=== PATIENT | female | born 1955 | race Caucasian/White ===

== ENCOUNTER 2021-03-04 07:39 | Outpatient (REF) | payer MEDICARE, SELFPAY ==
[2021-03-04 08:58] LABS: Cholesterol 194 mg/dL; HDL Cholesterol 111 mg/dL; LDL Cholesterol Calculated 66 mg/dl; Triglycerides 88 mg/dL
== END 2021-03-04 07:40 | disposition home or self-care (01) ==
LOC: HO.LAB 07:39
PROVIDERS: PCP Internal Medicine; Visit Provider Internal Medicine
DX: E11.9 Type 2 diabetes mellitus without complications (principal)
CPT/HCPCS: 36415; 80061

== ENCOUNTER 2022-03-25 10:26 | Outpatient (REF) | payer MEDICARE, SELFPAY ==
[2022-03-25 10:42] LABS: MANUAL DIFF FLAG NO
[2022-03-25 11:00] LABS: Basophils Percent Auto 0.5 % (0-2); Eosinophils Absolute Auto 0.1 X10*3/uL (0.0-0.4); Eosinophils Percent Auto 1.3 % (0-4); Hematocrit 39.9 % (37.0-47.0); Hemoglobin 13.3 g/dl (12.0-16.0); Imm Gran Abs Auto 0.02 X10*3/uL (0.00-0.03); Imm Gran Pct Auto 0.4 % (0.0-0.4); Lymphocytes Absolute Auto 1.7 X10*3/uL (1.2-4.9); Mean Corpuscular HGB Conc 33.3 g/dl (31.0-35.0); Mean Corpuscular Hemoglobin 31.7 pg (27.0-33.0); Mean Corpuscular Volume 95.2 fL (80.0-98.0); Mean Platelet Volume 10.3 fL (9.4-12.3); Monocytes Absolute Auto 0.6 X10*3/uL (0.1-1.2); Monocytes Percent Auto 10.4 % (2-11); Neutrophils Absolute Auto 3.1 x10*3/uL (2.0-8.3); Neutrophils Percent Auto 56.4 % (45-73); Platelet Count 164 X10*3/uL (160-400); Red Blood Count 4.19 X10*6/uL (4.20-5.50); Red Cell Distribution Width 12.7 % (11.0-16.0); White Blood Count 5.5 X10*3/uL (4.8-10.8)
[2022-03-25 11:33] LABS: Alanine Aminotransferase 17 U/L (0-31); Albumin Level 4.4 g/dL (3.5-5.0); Alkaline Phosphatase 47 U/L (39-117); Anion Gap 14 (12-20); Aspartate Amino Transferase 22 U/L (5-31); Blood Urea Nitrogen 10 mg/dL (9-16); Calcium 9.1 mg/dL (8.4-10.2); Carbon Dioxide 26 mmol/L (22-29); Chloride 105 mmol/L (96-108); Cholesterol 198 mg/dL; Estimated Glomerular Filt Rate > 60; Glucose Fasting 94 mg/dL (60-99); HDL Cholesterol 103 mg/dL; LDL Cholesterol Calculated 84 mg/dl; Potassium 4.6 mmol/L (3.3-5.1); Sodium 140 mmol/L (135-145); Total Protein 6.7 g/dL (6.5-8.0); Triglycerides 57 mg/dL
[2022-03-25 11:58] LABS: Thyroid Stimulating Hormone 1.84 uIU/mL (0.32-4.0)
== END 2022-03-25 10:27 | disposition home or self-care (01) ==
LOC: HO.LAB 10:26
PROVIDERS: PCP Internal Medicine; Visit Provider Internal Medicine
DX: Z00.00 Encounter for general adult medical examination without abnormal findings (principal); E11.9 Type 2 diabetes mellitus without complications
CPT/HCPCS: 36415; 80053; 80061; 84443; 85025

== ENCOUNTER 2022-12-24 08:24 | Outpatient (REF) | payer MEDICARE, SELFPAY ==
[2022-12-24 08:41] LABS: MANUAL DIFF FLAG NO
[2022-12-24 08:46] LABS: Basophils Percent Auto 0.3 % (0-2); Eosinophils Absolute Auto 0.1 X10*3/uL (0.0-0.4); Eosinophils Percent Auto 1.3 % (0-4); Hematocrit 39.5 % (37.0-47.0); Hemoglobin 13.2 g/dl (12.0-16.0); Imm Gran Abs Auto 0.02 X10*3/uL (0.00-0.03); Imm Gran Pct Auto 0.3 % (0.0-0.4); Lymphocytes Absolute Auto 1.8 X10*3/uL (1.2-4.9); Lymphocytes Percent Auto 28.8 % (20-40); Mean Corpuscular HGB Conc 33.4 g/dl (31.0-35.0); Mean Corpuscular Hemoglobin 32.4 pg (27.0-33.0); Mean Corpuscular Volume 97.1 fL (80.0-98.0); Mean Platelet Volume 10.2 fL (9.4-12.3); Monocytes Absolute Auto 0.5 X10*3/uL (0.1-1.2); Monocytes Percent Auto 8.7 % (2-11); Neutrophils Absolute Auto 3.8 x10*3/uL (2.0-8.3); Neutrophils Percent Auto 60.6 % (45-73); Platelet Count 161 X10*3/uL (160-400); Red Blood Count 4.07 X10*6/uL (4.20-5.50); Red Cell Distribution Width 12.9 % (11.0-16.0); White Blood Count 6.2 X10*3/uL (4.8-10.8)
[2022-12-24 09:41] LABS: Chloride 109 mmol/L (96-108)
[2022-12-24 09:43] LABS: Alanine Aminotransferase 20 U/L (0-31); Albumin Level 4.3 g/dL (3.5-5.0); Alkaline Phosphatase 43 U/L (39-117); Anion Gap 10 (12-20); Aspartate Amino Transferase 26 U/L (5-31); Bilirubin Total 0.7 mg/dL (0.0-1.0); Blood Urea Nitrogen 12 mg/dL (9-16); Calcium 9.4 mg/dL (8.4-10.2); Carbon Dioxide 27 mmol/L (22-29); Cholesterol 230 mg/dL; Estimated Glomerular Filt Rate > 60; Glucose Fasting 80 mg/dL (60-99); HDL Cholesterol 94 mg/dL; LDL Cholesterol Calculated 118 mg/dl; Potassium 4.4 mmol/L (3.3-5.1); Sodium 142 mmol/L (135-145); Total Protein 6.7 g/dL (6.5-8.0); Triglycerides 90 mg/dL
== END 2022-12-24 08:25 | disposition home or self-care (01) ==
LOC: HO.LAB 08:24
PROVIDERS: PCP Internal Medicine; Visit Provider Internal Medicine
DX: Z00.00 Encounter for general adult medical examination without abnormal findings (principal); E11.9 Type 2 diabetes mellitus without complications; Z13.0 Encounter for screening for diseases of the blood and blood-forming organs and certain disorders involving the immune mechanism
CPT/HCPCS: 36415; 80053; 80061; 85025

== ENCOUNTER 2023-05-31 14:14 | Outpatient (AMB) | payer MEDICARE, SELFPAY ==
[2023-05-31 14:16] VITALS: BP 132/64; PULSE 60; O2SAT 98; BMI 23.0
--- NOTE | 2023-05-31 14:16 | MHC.PC.OV ---
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: Not Required per policy Accompanied by: Self / Same As Patient Allergies bupropion [From WELLBUTRIN] Allergy (Intermediate, Verified 05/31/23 14:17) RASH Penicillins [PENICILLINS] Allergy (Intermediate, Verified 05/31/23 14:17) RASH lisinopril Allergy (Unknown, Verified 05/31/23 14:17) cough Medication List - Last Reconciled 06/01/23 by Champ Grady MD atorvastatin 10 mg PO DAILY bisoprolol fumarate 5 mg PO DAILY calcium carbonate-vitamin D3 600 mg-5 mcg (200 unit) (Calcium 600 + D(3)) 1 tab PO DAILY spironolactone mg PO turmeric 400 mg PO DAILY Tobacco use date assessed: 02/01/23 Fall risk assessment: No Falls in past year Last assessed Fall Risk: 05/31/23 Dental Screening Dental Screen Date: 05/31/23 Did you have a dental visit in the last 12 months?: Yes Did you have a dental problem in the last 6 months where you did not have access to dental care?: No Was dental information given to patient?: Patient has dentist HPI 4 month f/u HPI Details hyperlipidemia on Rx; doing well; compliant [facility] Medical History Hyperlipidemia Surgical History History of surgery Family History Father Automobile accident Family/Other Hypertension Brother No problems noted. Sister No problems noted. Social History Housing: House Alcohol intake: current Alcohol intake frequency: 0-2 drinks per day Patient Tobacco Use Status: Former Tobacco user Tobacco use type: Cigarette e-Cigarette/Vaping Use: Never Used Second Hand Smoke Exposure: No service: No Current occupational status: retired Cognitive needs: No Hearing needs: No Vision needs: Yes Questionnaire PHQ-9 Over the last 2 weeks, how often have you been bothered by any of the following problems? 1. Little interest or pleasure in doing things: not at all 2. Feeling down, depressed, or hopeless: not at all 3. Trouble falling or staying asleep, or sleeping too much: not at all 4. Feeling tired or having little energy: not at all 5. Poor appetite or overeating: not at all 6. Feeling bad about yourself - or that you are a failure or have let yourself or your family down: not at all 7. Trouble concentrating on things, such as reading the newspaper or watching television: not at all 8. Moving or speaking so slowly that other people could have noticed. Or the opposite - being so fidgety or restless that you have been moving around a lot more than usual: not at all 9. Thoughts that you would be better off or of hurting yourself in some way: not at all Total score: 0 Depression Screening Interpretation: Negative 90487 - PHQ-9 Billing: Yes Source: Developed by Drs. Kit Pope, Loly Zepeda, Noé Leyva and colleagues, with an educational mitchell from [employer]. Thrive Questionnaire Date Thrive assessed: 02/01/23 AUDIT C Alcohol Use Questionnaire (AUDIT-C) 1. How often do you have a drink containing alcohol?: 4 or more times a week 2. How many drinks containing alcohol do you have on a typical day when you are drinking?: 1 or 2 3. How often do you have six or more drinks on one occasion?: Never Total Score: 4 Score Reviewed/Action Taken: Yes VIRGIE-7 AMB Questionnaire VIRGIE-7 Date VIRGIE - 7 assessed: 02/01/23 Source: Developed by Drs. Kit Pope, Loly Zepeda, Noé Leyva and colleagues, with an educational mitchell from [employer]. Review of Systems Const Denies chills, Denies headache(s) and Denies weight loss ENT Denies headache(s) Card Denies chest pain, Denies syncope, Denies irregular heart rhythm and Denies dyspnea Resp Denies chest congestion, Denies cough and Denies dyspnea GI Denies abdominal pain, Denies change in stool character, Denies nausea and Denies vomiting Musc Denies deformity and Denies joint swelling Neuro Denies syncope and Denies headache(s) Physical exam (Primary Care) Vital Signs: Last Vital Signs Pulse 60 05/31/23 14:16 BP 132/64 05/31/23 14:16 Pulse Ox 98 05/31/23 14:16 Oxygen Delivery Method Room Air 05/31/23 14:16 BMI result Body Mass Index 23.0 Tobacco/Smoking Status: Tobacco use Status Tobacco use date assessed 02/01/23 05/31/23 14:21 Patient Tobacco Use Status Former Tobacco user 05/31/23 14:21 Tobacco use type Cigarette 05/31/23 14:21 e-Cigarette/Vaping Use Never Used 05/31/23 14:21 PHQ-9: PHQ-9 Score PHQ-9: Total score 0 05/31/23 14:21 Depression Screening Interpretation: Negative Thrive Assessment: Date of Thrive Assessment Date Thrive assessed 02/01/23 05/31/23 14:21 Const General: cooperative, comfortable, no acute distress and alert Neck Neck: Yes no lymphadenopathy Thyroid: Thyroid normal Resp Effort & Inspection: normal respiratory effort Auscultation: clear to auscultation bilaterally Percussion: percussion normal Cardio Jugular venous distension: no JVD Palpation: normal PMI Rate: regular rate Rhythm: regular rhythm Heart sounds: S1 normal heart sound present and S2 normal heart sound present GI Inspection: Yes normal to inspection Palpation (GI): No hepatosplenomegaly present Skin General skin exam: no rashes or lesions noted Extrem General: Yes no clubbing, cyanosis or edema Assessment and Plan Assessment & Plan (1) Hyperlipidemia: Code(s): E78.5 - Hyperlipidemia, unspecified Plan: stable; same rx Orders: Orders Lipid Panel Today E78.5 - Hyperlipidemia, unspecified Coding Level of Care Code Est Pt Level 3 (86918) Diagnoses Hyperlipidemia E78.5
== END 2023-05-31 14:29 | disposition home or self-care (01) ==
PROVIDERS: PCP Internal Medicine; Visit Provider Internal Medicine
DX: E78.5 Hyperlipidemia, unspecified (principal)
CPT/HCPCS: 99213

== ENCOUNTER 2023-07-11 06:21 | Day surgery (SDC) | payer MEDICARE, SELFPAY ==
[2023-07-07 11:51] VITALS: BMI 23.0
[2023-07-11 06:51] VITALS: BMI 23.0
[2023-07-11 07:14] VITALS: BP 146/78; PULSE 60; RESP 16; TEMP 36.3; O2SAT 97
[2023-07-11] MEDS: Lactated Ringers 1,000 ML 50 ML IVCONT (07:15)
--- NOTE | 2023-07-11 07:25 | HO.ANESPROP2 ---
HPI - Anesthesia Eval Consult details Narrative: 67 yo F for colonoscopy. Hx of Takutsubo cardiomyopathy. Cardiology notes reviewed. [facility] Active Problems Active Problems: All Active Problems (Updated 07/07/23 @ 11:54 by Ritika Frye RN) Physical exam (Acute) Hyperlipidemia (Acute) Past Medical History Medical History Paroxysmal atrial fibrillation Takotsubo cardiomyopathy Hyperlipidemia Family History Family History Father Automobile accident Family/Other Hypertension Brother No problems noted. Sister No problems noted. Surgical History Surgical History Hx of cardiac catheterization Hx of cervical discectomy H/O colonoscopy History of Problems with Anesthesia: No Social History Social History Housing: House Alcohol intake: current Alcohol intake frequency: 0-2 drinks per day Patient Tobacco Use Status: Former Tobacco user Quit Date: 20 years Tobacco use type: Cigarette e-Cigarette/Vaping Use: Never Used Second Hand Smoke Exposure: No Use of substances other than those prescribed or required for medical reasons: No Are you DNR?: No Advance Directives: No Advance Directives Information Provided: Yes service: No Current occupational status: retired Cognitive needs: No Hearing needs: No Vision needs: Yes Meds Allergies Allergy/AdvReac Type Severity Reaction Status Date / Time bupropion [From WELLBUTRIN] Allergy Intermediate RASH Verified 07/11/23 06:57 Penicillins [PENICILLINS] Allergy Intermediate RASH Verified 07/11/23 06:57 lisinopril AdvReac Intermediate cough Verified 07/11/23 06:57 Active Medications: Current Medications Lactated Ringer's (Lr) 1,000 mls @ 50 mls/hr IVCONT .Q20H DARRYL Sodium Biphosphate/Sodium Phosphate (Sodium Phosphate,Dewitt-Dibasic 133 Ml Enema) 133 ml NV ONCE PRN PRN Reason: Poor Colonoscopy Prep Results Home Medications Medication Instructions Recorded Confirmed Last Taken Type bisoprolol fumarate 5 mg tablet 5 mg PO DAILY 09/02/20 07/11/23 07/11/23 History calcium carbonate 600 mg-vitamin 1 tab PO DAILY 09/02/20 07/11/23 07/11/23 History D3 5 mcg (200 unit) tablet (Calcium 600 + D(3)) turmeric 400 mg capsule 400 mg PO DAILY 12/30/20 07/11/23 07/11/23 History Exam Exam Date and Time: July 11, 2023 0725 Height,Weight and Vital Signs: Height 5 ft 4.25 in Weight 61.235 kg Last Vital Signs Temp 97.3 F 07/11/23 07:14 Pulse 60 07/11/23 07:14 Resp 16 07/11/23 07:14 BP 146/78 H 07/11/23 07:14 Pulse Ox 97 07/11/23 07:14 O2 Del Method Room Air 07/11/23 07:14 Airway Mallampati Class: II TM Dist: >3cm Neck ROM: Full Loose/Missing/Broken Teeth: No Heart: S1S2 Lungs: CTAB Assessment and Plan Assessment Anesthesia Assessment: Anesthesia Plan Discussed and Chart Reviewed Final Anesthetic Review History of Problems with Anesthesia: No NPO: Yes ASA Class: II Final Preanesthetic Review: No Changes in Pt Med Stat, Meds/Allgs Chart Reviewed, Consent Obtained/Reviewed and Anes Risks/Benef Reviewed Patient Risk: Intermediate Procedure Risk: Low Anesthetic Plan Anesthetic Plan: MAC: and Agree w/ Assess. and Plan Disposition: Standard PACU
[2023-07-11 08:28] VITALS: BP 101/50; PULSE 75; RESP 20; TEMP 36.6; O2SAT 99
--- NOTE | 2023-07-11 08:30 | PM.OP ---
Brief Operative Note Date of Service: 07/11/23 Pre-op diagnosis: Screening Post-op diagnosis: other (Colon polyp) Procedure: Colonoscopy to the cecum with bx/removal of polyp Surgeon: Kit Portillo MD Anesthesia: MAC Was an Admitting Counselor used for this Procedure?: No Estimated blood loss (mL): 2.0 Pathology: other (A. Transverse colon polyp) Condition: stable Disposition: PACU
[2023-07-11 08:43] VITALS: BP 122/73; PULSE 63; RESP 16; O2SAT 97
--- NOTE | 2023-07-11 08:51 | OP_ITS ---
DATE OF SERVICE: 07/11/2023 SURGEON: Kit Portillo MD INDICATIONS: The patient presents for evaluation of colorectal cancer screening and family history of colon cancer. Full consent was obtained from her for this, including risks of bleeding and perforation. PREOPERATIVE DIAGNOSIS: Colorectal cancer screening and family history of colon cancer. POSTOPERATIVE DIAGNOSIS: PROCEDURE PERFORMED: Colonoscopy to cecum with biopsy and removal of polyp. ESTIMATED BLOOD LOSS: COMPLICATIONS: ANESTHESIA: Monitored anesthesia care. ASSISTANTS: SPECIMENS: POSTOPERATIVE DIAGNOSES: Colorectal cancer screening and family history of colon cancer, colon polyp, diverticulosis and internal hemorrhoids. DESCRIPTION OF PROCEDURE: The patient was placed in the left lateral decubitus position. The digital rectal exam revealed no abnormalities. The Olympus video pediatric colonoscope was entered into the rectum and advanced easily to the cecum. Once in the cecum, I did identify normal-appearing cecal pouch with appendiceal orifice and a normal-appearing ileocecal valve. There was transillumination of light deep in the right lower quadrant. The entire cecum and ileocecal valve appeared normal. The scope was slowly withdrawn assessing all mucosal surfaces carefully. Preparation was excellent. In the transverse colon was a flat, approximately 4 or 5 mm polyp, which was biopsied and removed with cold biopsy forceps. I did not visualize any other polyps, colitis, nor angiodysplasia. There was a mild amount of sigmoid diverticulosis. In the rectum, scope was retroflexed visualizing internal hemorrhoids, but no other pathology. The rectal mucosa appeared normal. The scope was straightened and withdrawn from the patient. She tolerated the procedure well and was returned to the recovery area in stable condition. IMPRESSION: 1. Colon polyp. 2. Diverticulosis. 3. Internal hemorrhoids. PLAN: The results of the biopsy will be checked. I would recommend a repeat colonoscopy in 5 years for further surveillance. She will otherwise see me on a p.r.n. basis. Kit Portillo MD RMAddis/BHAVYA / [phone]
[2023-07-11 08:58] VITALS: BP 136/74; PULSE 64; RESP 16; TEMP 36.6; O2SAT 99
== END 2023-07-11 09:30 | disposition home or self-care (01) ==
PROVIDERS: PCP Internal Medicine; Visit Provider Internal Medicine
PROC: 0DJD8ZZ Inspection of Lower Intestinal Tract, Via Natural or Artificial Opening Endoscopic (ICD-10-PCS; CPT 45378; principal; 2023-07-11 07:30)
DX: Z12.11 Encounter for screening for malignant neoplasm of colon (principal); D12.3 Benign neoplasm of transverse colon; K57.30 Diverticulosis of large intestine without perforation or abscess without bleeding; K64.8 Other hemorrhoids; Z80.0 Family history of malignant neoplasm of digestive organs; I48.0 Paroxysmal atrial fibrillation; E78.5 Hyperlipidemia, unspecified; Z87.891 Personal history of nicotine dependence; Z79.899 Other long term (current) drug therapy
CPT/HCPCS: 45380; 88305

== ENCOUNTER 2023-12-01 13:23 | Outpatient (AMB) | payer MEDICARE, SELFPAY ==
[2023-12-01 13:25] VITALS: BP 122/74; PULSE 78; O2SAT 98; BMI 22.8
--- NOTE | 2023-12-01 13:25 | MHC.PC.OV ---
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: Not Required per policy Accompanied by: Self / Same As Patient Allergies bupropion [From WELLBUTRIN] Allergy (Intermediate, Verified 12/01/23 13:26) RASH Penicillins [PENICILLINS] Allergy (Intermediate, Verified 12/01/23 13:26) RASH lisinopril Adverse Reaction (Intermediate, Verified 12/01/23 13:26) cough Medication List - Last Reconciled 12/01/23 by Champ Grady MD atorvastatin 10 mg PO DAILY bisoprolol fumarate 5 mg PO DAILY calcium carbonate-vitamin D3 600 mg-5 mcg (200 unit) (Calcium 600 + D(3)) 1 tab PO DAILY turmeric 400 mg PO DAILY Tobacco use date assessed: 12/01/23 Fall risk assessment: No Falls in past year Last assessed Fall Risk: 12/01/23 Dental Screening Dental Screen Date: 12/01/23 Did you have a dental visit in the last 12 months?: Yes Did you have a dental problem in the last 6 months where you did not have access to dental care?: No Was dental information given to patient?: Patient has dentist HPI 6 month f/u HPI Details hyperlipidemia on rx; doing well; compliant [facility] Medical History Paroxysmal atrial fibrillation Takotsubo cardiomyopathy Hyperlipidemia Surgical History Hx of cardiac catheterization Hx of cervical discectomy H/O colonoscopy Family History Father Automobile accident Family/Other Hypertension Brother No problems noted. Sister No problems noted. Social History Housing: House Alcohol intake: current Alcohol intake frequency: 0-2 drinks per day Patient Tobacco Use Status: Former Tobacco user Quit Date: 20 years Tobacco use type: Cigarette e-Cigarette/Vaping Use: Never Used Second Hand Smoke Exposure: No service: No Current occupational status: retired Cognitive needs: No Hearing needs: No Vision needs: Yes Questionnaire PHQ-9 Over the last 2 weeks, how often have you been bothered by any of the following problems? 1. Little interest or pleasure in doing things: not at all 2. Feeling down, depressed, or hopeless: not at all 3. Trouble falling or staying asleep, or sleeping too much: not at all 4. Feeling tired or having little energy: not at all 5. Poor appetite or overeating: not at all 6. Feeling bad about yourself - or that you are a failure or have let yourself or your family down: not at all 7. Trouble concentrating on things, such as reading the newspaper or watching television: not at all 8. Moving or speaking so slowly that other people could have noticed. Or the opposite - being so fidgety or restless that you have been moving around a lot more than usual: not at all 9. Thoughts that you would be better off or of hurting yourself in some way: not at all Total score: 0 Depression Screening Interpretation: Negative Depression Screening Done: Yes 97538 - PHQ-9 Billing: Yes Source: Developed by Drs. Kit Pope, Loly Zepeda, Noé Leyva and colleagues, with an educational mitchell from [employer]. Thrive Questionnaire Date Thrive assessed: 12/01/23 I am a: Patient What is your living situation today?: I have a steady place to live Within the past 12 months, did the food you bought not last and you didn't have the money to get more?: Never true Within the past 12 months, did you worry whether your food would run out before you got money to buy more?: Never true Do you have trouble paying for medicines?: No Do you have trouble getting transportation to medical appointments?: No Do you have trouble paying your heating and electricity bill?: No Do you have trouble taking care of your child, family member or friend?: No Do you have trouble with day-to-day activities such as bathing, preparing meals, shopping, managing finances, etc.?: No Are you currently unemployed and looking for a job?: No Are you interested in more education?: No Please select the resources that you would like help with: None THRIVE Score: 0 AUDIT C Alcohol Use Questionnaire (AUDIT-C) 1. How often do you have a drink containing alcohol?: 4 or more times a week 2. How many drinks containing alcohol do you have on a typical day when you are drinking?: 1 or 2 3. How often do you have six or more drinks on one occasion?: Never Total Score: 4 Score Reviewed/Action Taken: Yes VIRGIE-7 AMB Questionnaire VIRGIE-7 Date VIRGIE - 7 assessed: 12/01/23 Feeling nervous, anxious, or on edge: 0 = Not at all Not being able to stop or control worryin = Not at all Worrying too much about different things: 0 = Not at all Trouble relaxin = Not at all Being so restless that it is hard to sit still: 0 = Not at all Becoming easily annoyed or irritable: 0 = Not at all Feeling afraid as if something awful might happen: 0 = Not at all Total VIRGIE-7 score (0-4 normal; 5-9 mild; 10-14 moderate; 15-21 severe): 0 Source: Developed by Drs. Kit Pope, Loly Zepeda, Noé Leyva and colleagues, with an educational mitchell from [employer]. Review of Systems Const Denies chills, Denies headache(s) and Denies weight loss ENT Denies headache(s) Card Denies chest pain, Denies syncope, Denies irregular heart rhythm and Denies dyspnea Resp Denies chest congestion, Denies cough and Denies dyspnea GI Denies abdominal pain, Denies change in stool character, Denies nausea and Denies vomiting Musc Denies deformity and Denies joint swelling Neuro Denies syncope and Denies headache(s) Physical exam (Primary Care) Vital Signs: Last Vital Signs Pulse 78 12/01/23 13:25 BP 122/74 12/01/23 13:25 Pulse Ox 98 12/01/23 13:25 Oxygen Delivery Method Room Air 12/01/23 13:25 BMI result Body Mass Index 22.8 Tobacco/Smoking Status: Tobacco use Status Tobacco use date assessed 12/01/23 12/01/23 13:30 Patient Tobacco Use Status Former Tobacco user 12/01/23 13:30 Tobacco use type Cigarette 12/01/23 13:30 e-Cigarette/Vaping Use Never Used 12/01/23 13:30 PHQ-9: PHQ-9 Score PHQ-9: Total score 0 12/01/23 13:30 Depression Screening Interpretation: Negative Thrive Assessment: Date of Thrive Assessment Date Thrive assessed 12/01/23 12/01/23 13:30 Const General: cooperative, comfortable, no acute distress and alert Neck Neck: Yes no lymphadenopathy Thyroid: Thyroid normal Resp Effort & Inspection: normal respiratory effort Auscultation: clear to auscultation bilaterally Percussion: percussion normal Cardio Jugular venous distension: no JVD Palpation: normal PMI Rate: regular rate Rhythm: regular rhythm Heart sounds: S1 normal heart sound present and S2 normal heart sound present GI Inspection: Yes normal to inspection Palpation (GI): No hepatosplenomegaly present Skin General skin exam: no rashes or lesions noted Extrem General: Yes no clubbing, cyanosis or edema Assessment and Plan Assessment & Plan (1) Hyperlipidemia: Code(s): E78.5 - Hyperlipidemia, unspecified Plan: stable; same rx Orders: Orders Lipid Panel Today E78.5 - Hyperlipidemia, unspecified Comprehensive [place]. Panel Fast Today N28.9 - Disorder of kidney and ureter, unspecified Complete Blood Count Auto Diff Today D64.9 - Anemia, unspecified Thyroid Stimulating Hormone Today E03.9 - Hypothyroidism, unspecified Coding Level of Care Code Est Pt Level 3 (45123) Diagnoses Hyperlipidemia E78.5
== END 2023-12-01 13:44 | disposition home or self-care (01) ==
PROVIDERS: PCP Internal Medicine; Visit Provider Internal Medicine
DX: E78.5 Hyperlipidemia, unspecified (principal)
CPT/HCPCS: 99213

== ENCOUNTER 2024-05-23 09:26 | Outpatient (REF) | payer MEDICARE, SELFPAY ==
[2024-05-23 13:57] LABS: MANUAL DIFF FLAG NO
[2024-05-23 14:00] LABS: Basophils Percent Auto 0.6 % (0-2); Eosinophils Absolute Auto 0.1 X10*3/uL (0.0-0.4); Eosinophils Percent Auto 1.3 % (0-4); Imm Gran Abs Auto 0.01 X10*3/uL (0.00-0.03); Imm Gran Pct Auto 0.2 % (0.0-0.4); Lymphocytes Absolute Auto 1.6 X10*3/uL (1.2-4.9); Mean Corpuscular HGB Conc 33.3 g/dl (31.0-35.0); Mean Corpuscular Hemoglobin 31.6 pg (27.0-33.0); Mean Corpuscular Volume 94.8 fL (80.0-98.0); Monocytes Absolute Auto 0.6 X10*3/uL (0.1-1.2); Neutrophils Absolute Auto 3.1 x10*3/uL (2.0-8.3); Neutrophils Percent Auto 56.9 % (45-73); Platelet Count 172 X10*3/uL (160-400); Red Blood Count 4.43 X10*6/uL (4.20-5.50); Red Cell Distribution Width 13.1 % (11.0-16.0); White Blood Count 5.4 X10*3/uL (4.8-10.8)
[2024-05-23 14:38] LABS: Alanine Aminotransferase 16 U/L (0-31); Albumin Level 4.4 g/dL (3.5-5.0); Alkaline Phosphatase 62 U/L (39-117); Anion Gap 15 (12-20); Aspartate Amino Transferase 21 U/L (5-31); Bilirubin Total 0.8 mg/dL (0.0-1.0); Blood Urea Nitrogen 11 mg/dL (9-16); Calcium 9.8 mg/dL (8.4-10.2); Carbon Dioxide 25 mmol/L (22-29); Chloride 108 mmol/L (96-108); Cholesterol 177 mg/dL (<200); Estimated Glomerular Filt Rate > 60; Glucose Fasting 91 mg/dL (60-99); HDL Cholesterol 99 mg/dL (>40); LDL Cholesterol Calculated 66 mg/dL (<100); Potassium 4.5 mmol/L (3.3-5.1); Sodium 143 mmol/L (135-145); Triglycerides 61 mg/dL (<150)
[2024-05-23 14:40] LABS: Thyroid Stimulating Hormone 1.76 uIU/mL (0.32-4.0)
== END 2024-05-23 09:27 | disposition home or self-care (01) ==
LOC: HO.HMGCLDS 09:26
PROVIDERS: PCP Internal Medicine; Visit Provider Internal Medicine
DX: D64.9 Anemia, unspecified (principal); E78.5 Hyperlipidemia, unspecified; E03.9 Hypothyroidism, unspecified; N28.9 Disorder of kidney and ureter, unspecified
CPT/HCPCS: 36415; 80053; 80061; 84443; 85025

== ENCOUNTER 2024-06-08 10:16 | Outpatient (AMB) | payer MEDICARE, SELFPAY ==
[2024-06-08 10:18] VITALS: BP 118/64; PULSE 60; O2SAT 98; BMI 22.7
--- NOTE | 2024-06-08 10:18 | MHC.PC.OV ---
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 Required: No Accompanied by: Self / Same As Patient Allergies bupropion [From WELLBUTRIN] Allergy (Intermediate, Verified 06/08/24 10:20) RASH Penicillins [PENICILLINS] Allergy (Intermediate, Verified 06/08/24 10:20) RASH lisinopril Adverse Reaction (Intermediate, Verified 06/08/24 10:20) cough Medication List - Last Reconciled 06/08/24 by Champ Grady MD atorvastatin 10 mg PO DAILY bisoprolol fumarate 5 mg PO DAILY calcium carbonate-vitamin D3 600 mg-5 mcg (200 unit) (Calcium 600 + D(3)) 1 tab PO DAILY turmeric 400 mg PO DAILY Tobacco use date assessed: 12/01/23 Fall risk assessment: No Falls in past year Last assessed Fall Risk: 06/08/24 Dental Screening Dental Screen Date: 12/01/23 HPI 6 Month F/U HPI Details hyperlipidemia on rx; doing well and compliant [facility] Medical History Paroxysmal atrial fibrillation Takotsubo cardiomyopathy Hyperlipidemia Surgical History Hx of cardiac catheterization Hx of cervical discectomy H/O colonoscopy Family History Father Automobile accident Family/Other Hypertension Brother No problems noted. Sister No problems noted. Social History Housing: House Alcohol intake: current Alcohol intake frequency: 0-2 drinks per day Patient Tobacco Use Status: Former Tobacco user Tobacco use type: Cigarette e-Cigarette/Vaping Use: Never Used Second Hand Smoke Exposure: No service: No Current occupational status: retired Cognitive needs: No Hearing needs: No Vision needs: Yes Questionnaire PHQ-9 Over the last 2 weeks, how often have you been bothered by any of the following problems? 1. Little interest or pleasure in doing things: not at all 2. Feeling down, depressed, or hopeless: not at all 3. Trouble falling or staying asleep, or sleeping too much: not at all 4. Feeling tired or having little energy: not at all 5. Poor appetite or overeating: not at all 6. Feeling bad about yourself - or that you are a failure or have let yourself or your family down: not at all 7. Trouble concentrating on things, such as reading the newspaper or watching television: not at all 8. Moving or speaking so slowly that other people could have noticed. Or the opposite - being so fidgety or restless that you have been moving around a lot more than usual: not at all 9. Thoughts that you would be better off or of hurting yourself in some way: not at all Total score: 0 Depression Screening Interpretation: Negative Depression Screening Done: Yes 36148 - PHQ-9 Billing: Yes Source: Developed by Drs. Kit Pope, Loly Zepeda, Noé Leyva and colleagues, with an educational mitchell from [employer]. Thrive Questionnaire Date Thrive assessed: 12/01/23 Are you currently unemployed and looking for a job?: No AUDIT C Alcohol Use Questionnaire (AUDIT-C) 1. How often do you have a drink containing alcohol?: 4 or more times a week 2. How many drinks containing alcohol do you have on a typical day when you are drinking?: 1 or 2 3. How often do you have six or more drinks on one occasion?: Never Total Score: 4 Score Reviewed/Action Taken: Yes VIRGIE-7 AMB Questionnaire VIRGIE-7 Date VIRGIE - 7 assessed: 12/01/23 Source: Developed by Drs. Kit Pope, Loly Zepeda, Noé Leyva and colleagues, with an educational mitchell from [employer]. Review of Systems Const Denies chills, Denies headache(s) and Denies weight loss ENT Denies headache(s) Card Denies chest pain, Denies syncope, Denies irregular heart rhythm and Denies dyspnea Resp Denies chest congestion, Denies cough and Denies dyspnea GI Denies abdominal pain, Denies change in stool character, Denies nausea and Denies vomiting Musc Denies deformity and Denies joint swelling Neuro Denies syncope and Denies headache(s) Physical exam (Primary Care) Vital Signs: Last Vital Signs Pulse 60 06/08/24 10:18 BP 118/64 06/08/24 10:18 Pulse Ox 98 06/08/24 10:18 Oxygen Delivery Method Room Air 06/08/24 10:18 BMI result Body Mass Index 22.7 Tobacco/Smoking Status: Tobacco use Status Tobacco use date assessed 12/01/23 06/08/24 10:22 Patient Tobacco Use Status Former Tobacco user 06/08/24 10:22 Tobacco use type Cigarette 06/08/24 10:22 e-Cigarette/Vaping Use Never Used 06/08/24 10:22 PHQ-9: PHQ-9 Score PHQ-9: Total score 0 06/08/24 10:22 Depression Screening Interpretation: Negative Thrive Assessment: Date of Thrive Assessment Date Thrive assessed 12/01/23 06/08/24 10:22 Const General: cooperative, comfortable, no acute distress and alert Neck Neck: Yes no lymphadenopathy Thyroid: Thyroid normal Resp Effort & Inspection: normal respiratory effort Auscultation: clear to auscultation bilaterally Percussion: percussion normal Cardio Jugular venous distension: no JVD Palpation: normal PMI Rate: regular rate Rhythm: regular rhythm Heart sounds: S1 normal heart sound present and S2 normal heart sound present GI Inspection: Yes normal to inspection Palpation (GI): No hepatosplenomegaly present Skin General skin exam: no rashes or lesions noted Extrem General: Yes no clubbing, cyanosis or edema Assessment and Plan Assessment & Plan (1) Hyperlipidemia: Code(s): E78.5 - Hyperlipidemia, unspecified Plan: stable; same rx Orders: Orders Lipid Panel Today Z13.220 - Encounter for screening for lipoid disorders Coding Level of Care Code Est Pt Level 3 (64888) Diagnoses Hyperlipidemia E78.5
== END 2024-06-08 10:34 | disposition home or self-care (01) ==
PROVIDERS: PCP Internal Medicine; Visit Provider Internal Medicine
DX: E78.5 Hyperlipidemia, unspecified (principal)

== ENCOUNTER → 2024-06-08 10:16 | Outpatient (BNVA) | payer MEDICARE, SELFPAY | PROVIDERS: PCP Internal Medicine; Visit Provider Internal Medicine | DX: E78.5 Hyperlipidemia, unspecified (principal) | CPT/HCPCS: 99212 ==

== ENCOUNTER 2024-10-30 10:05 | Outpatient (AMB) | payer MEDICARE, SELFPAY ==
[2024-10-30 10:06] VITALS: BP 118/70; PULSE 68; O2SAT 98; BMI 23.0
--- NOTE | 2024-10-30 10:06 | MHC.PC.OV ---
Vital Signs 10/30/24 10:06 Height 5 ft 4 in Weight 134 lb BMI 23.0 BP 118/70 Blood Pressure Location Lt brachial Position Sitting Pulse 68 Pulse Source Pulse Oximeter Pulse Oximetry (%) 98 Oxygen Delivery Method Room Air Intake Visit Reasons: 6 month f/u Allergies bupropion [From WELLBUTRIN] Allergy (Intermediate, Verified 10/30/24 10:06) RASH Penicillins [PENICILLINS] Allergy (Intermediate, Verified 10/30/24 10:06) RASH lisinopril Adverse Reaction (Intermediate, Verified 10/30/24 10:06) cough Medication List - Last Reconciled 10/30/24 by Champ Grady MD atorvastatin 10 mg PO DAILY bisoprolol fumarate 5 mg PO DAILY calcium carbonate-vitamin D3 600 mg-5 mcg (200 unit) (Calcium 600 + D(3)) 1 tab PO DAILY turmeric 400 mg PO DAILY Tobacco use date assessed: 10/30/24 Fall risk assessment: No Falls in past year Last assessed Fall Risk: 10/30/24 Dental Screening Dental Screen Date: 10/30/24 Did you have a dental visit in the last 12 months?: Yes Did you have a dental problem in the last 6 months where you did not have access to dental care?: No Was dental information given to patient?: Patient has dentist HPI 6 month f/u HPI Details hyperlipidemia on rx; doing well; compliant [facility] Medical History Paroxysmal atrial fibrillation Takotsubo cardiomyopathy Hyperlipidemia Surgical History Hx of cardiac catheterization Hx of cervical discectomy H/O colonoscopy Family History Father Automobile accident Family/Other Hypertension Brother No problems noted. Sister No problems noted. Social History Housing: House Alcohol intake: current Alcohol intake frequency: 0-2 drinks per day Patient Tobacco Use Status: Former Tobacco user Tobacco use type: Cigarette e-Cigarette/Vaping Use: Never Used Second Hand Smoke Exposure: No service: No Current occupational status: retired Cognitive needs: No Hearing needs: No Vision needs: Yes Questionnaire PHQ-9 Over the last 2 weeks, how often have you been bothered by any of the following problems? 1. Little interest or pleasure in doing things: not at all 2. Feeling down, depressed, or hopeless: not at all 3. Trouble falling or staying asleep, or sleeping too much: not at all 4. Feeling tired or having little energy: not at all 5. Poor appetite or overeating: not at all 6. Feeling bad about yourself - or that you are a failure or have let yourself or your family down: not at all 7. Trouble concentrating on things, such as reading the newspaper or watching television: not at all 8. Moving or speaking so slowly that other people could have noticed. Or the opposite - being so fidgety or restless that you have been moving around a lot more than usual: not at all 9. Thoughts that you would be better off or of hurting yourself in some way: not at all Total score: 0 Depression Screening Interpretation: Negative Depression Screening Done: Yes 21343 - PHQ-9 Billing: Yes Source: Developed by Drs. Kit Pope, Loly Zepeda, Noé Leyva and colleagues, with an educational mitchell from [employer]. Thrive Questionnaire Date Thrive assessed: 10/30/24 I am a: Patient What is your living situation today?: I have a steady place to live Within the past 12 months, did the food you bought not last and you didn't have the money to get more?: Never true Within the past 12 months, did you worry whether your food would run out before you got money to buy more?: Never true Do you have trouble paying for medicines?: No Do you have trouble getting transportation to medical appointments?: No Do you have trouble paying your heating and electricity bill?: No Do you have trouble taking care of your child, family member or friend?: No Do you have trouble with day-to-day activities such as bathing, preparing meals, shopping, managing finances, etc.?: No Are you currently unemployed and looking for a job?: No Are you interested in more education?: No Currently or been in a relationship where the following occur: No concerns reported THRIVE Score: 0 AUDIT C Alcohol Use Questionnaire (AUDIT-C) 2. How many drinks containing alcohol do you have on a typical day when you are drinking?: 3 or 4 3. How often do you have six or more drinks on one occasion?: Never Total Score: 1 VIRGIE-7 AMB Questionnaire VIRGIE-7 Date VIRGIE - 7 assessed: 10/30/24 Feeling nervous, anxious, or on edge: 0 = Not at all Not being able to stop or control worryin = Not at all Worrying too much about different things: 0 = Not at all Trouble relaxin = Not at all Being so restless that it is hard to sit still: 0 = Not at all Becoming easily annoyed or irritable: 0 = Not at all Feeling afraid as if something awful might happen: 0 = Not at all Total VIRGIE-7 score (0-4 normal; 5-9 mild; 10-14 moderate; 15-21 severe): 0 Source: Developed by Drs. Kit Pope, Loly Zepeda, Noé Leyva and colleagues, with an educational mitchell from [employer]. Review of Systems Const Denies chills, Denies headache(s) and Denies weight loss ENT Denies headache(s) Card Denies chest pain, Denies syncope, Denies irregular heart rhythm and Denies dyspnea Resp Denies chest congestion, Denies cough and Denies dyspnea GI Denies abdominal pain, Denies change in stool character, Denies nausea and Denies vomiting Musc Denies deformity and Denies joint swelling Neuro Denies syncope and Denies headache(s) Physical exam (Primary Care) Vital Signs: Last Vital Signs Pulse 68 10/30/24 10:06 BP 118/70 10/30/24 10:06 Pulse Ox 98 10/30/24 10:06 Oxygen Delivery Method Room Air 10/30/24 10:06 BMI result Body Mass Index 23.0 Tobacco/Smoking Status: Tobacco use Status Tobacco use date assessed 10/30/24 10/30/24 10:11 Patient Tobacco Use Status Former Tobacco user 10/30/24 10:11 Tobacco use type Cigarette 10/30/24 10:11 e-Cigarette/Vaping Use Never Used 10/30/24 10:11 PHQ-9: PHQ-9 Score PHQ-9: Total score 0 10/30/24 10:11 Depression Screening Interpretation: Negative Thrive Assessment: Date of Thrive Assessment Date Thrive assessed 10/30/24 10/30/24 10:11 Currently or been in a relationship where the following occur: No concerns reported Const General: cooperative, comfortable, no acute distress and alert Neck Neck: Yes no lymphadenopathy Thyroid: Thyroid normal Resp Effort & Inspection: normal respiratory effort Auscultation: clear to auscultation bilaterally Percussion: percussion normal Cardio Jugular venous distension: no JVD Palpation: normal PMI Rate: regular rate Rhythm: regular rhythm Heart sounds: S1 normal heart sound present and S2 normal heart sound present GI Inspection: Yes normal to inspection Palpation (GI): No hepatosplenomegaly present Skin General skin exam: no rashes or lesions noted Extrem General: Yes no clubbing, cyanosis or edema Coding Level of Care Code Est Pt Level 3 (16597) Diagnoses Hyperlipidemia E78.5 Additional Codes PHQ-9 - 99446 - PHQ-9 Billing: Yes ([id number]) Assessment & Plan Assessment & Plan (1) Hyperlipidemia: Code(s): E78.5 - Hyperlipidemia, unspecified Category: Medical Plan: stable; same rx
--- OUTSIDE RECORDS SUMMARY | 2024-10-30 10:58 | XMS_ITS | Patient Health Record ---
Author Organization [facility] Address [address] [place] [address] Care Team Providers Care Command Center Analyst Name Role Phone Miguel A SOLIMAN, Champ Primary Care Provider Kit Perrea Unavailable [phone] ALLERGIES Allergen (clinical drug ingredient) Drug/Non Drug Allergy documented on EMR Reaction Allergy Type Onset Date Status Penicillin Unknown Drug Allergy Active REASON FOR REFERRAL No Information MEDICATIONS Medication SIG (Take, Route, Frequency, Duration) Notes Start Date End Date Status Bisoprolol Fumarate 5 MG TAKE 1 TABLET B Y MOUTH EVERY DAY Oral for 90 Active Atorvastatin Calcium 10 MG TAKE 1 TABLET BY MOUTH DAILY Oral for 90 Active Doxycycline Hyclate 50 MG Oral for 30 Active Valtrex Active Calcium 600 + D 600-5 MG-MCG 1 tablet with a meal Orally Once a day for 30 day(s) Active SOCIAL HISTORY Tobacco Use: Social History Observation Description Date Details (start date - stop date) Former Smoker NA - NA Sex Assigned At : Social History Observation Description Sex Assigned At Unknown Tobacco Use/Smoking Question Answer Notes Patient is a former smoker How long has it been since you last smoked? > 10 years Alcohol Screen Question Answer Notes Did you have a drink contain ing alcohol in the past year? Yes How often did you have a dri nk containing alcohol in the past year? 4 or more times a week (4 points) How many drinks did you have on a typical day when you were drinking in the past year? 1 or 2 drinks (0 point) Points 4 Interpretation Positive PROBLEMS Problem Type ICD Code Onset Dates Problem Status W/U Status Risk SNOMED Code Notes Problem Colon cancer screening (Z12.11) Active confirmed 363084626 Problem Preprocedural examination (Z01.818) Active confirmed 252736473251541 Problem Family history of colon cancer (Z80.0) Active confirmed 705677878 Problem Diverticulosis of large intestine without perforation or abscess without bleeding (K57.30) Active confirmed Diverticul ar disease of colon (130465128) PLAN OF TREATMENT Future Test Test Name Order Date COLONOSCOPY 04/12/2023 Insurance Providers Payer Name Payer Address Payer Phone Subscriber Number Group Number Insured Name Patient Relationship to Insured Coverage Start Date Coverage End Date [facility] [address] [facility] [place] [phone] [id number] DEVONTE MARTI Self - patient is the insured MEDICAL (GENERAL) HISTORY Medical History History ICD Code 2017 Takotsubo syndrome cardiomyopathy-- -resolved-F/U Echos have been normal Denies SC,DM,CVA,Lung disease,renal dise ase Negative colonoscopy [place] [address] Inessa luis Acne rosacea Surgical History Surgery Date(Month/Year) Neck surgery disc C6/C7 04/12/2018
--- OUTSIDE RECORDS SUMMARY | 2024-10-30 10:58 | XMS_ITS | Clinical Summary ---
Author Organization [facility] ity Address [address] [place] [address] Care Team Providers Care Derrick Worker Well Service Name Role Phone Champ Grady MD Primary Care Provider [phone] Social History Tobacco Use Types Packs/Day Years Used Date Smoking Tobacco: Never Assessed Comments Unknown Sex and Gender Information Value Date Recorded Sex Assigned at Not on file Legal Sex Female 1:20 PM EST Gender Identity Not on file Sexual Orientation Not on file Plan of Treatment Health Maintenance Due Date Last Done Comments Breast Cancer Screening 1955 DTaP,Tdap,and Td Vaccines (1 - Tdap) 1973 Pneumococcal Vaccine: 50+ Ye ars (1 of 1 - PCV) 2004 Zoster Vaccines (1 of 2) 2004 COVID-19 Vaccine ( - 2023-2 5 season) 2024 Influenza Vaccine (#1) 2024 RSV Immunization Patients 60 + Years Old (1 - 1-dose 75+ series) 2029 HIB Vaccines Aged Out No longer eligi ble based on patient's age to complete this topic HPV Vaccines Aged Out No longer eligi ble based on patient's age to complete this topic Hepatitis A Vaccines Aged Out No long er eligible based on patient's age to complete this topic Hepatitis B Vaccines Aged Out No long er eligible based on patient's age to complete this topic IPV Vaccines Aged Out No longer eligi ble based on patient's age to complete this topic MMR Vaccines Aged Out No longer eligi ble based on patient's age to complete this topic Meningococcal ACWY Vaccine Aged Out N o longer eligible based on patient's age to complete this topic Meningococcal B Vacine Aged Out No lo nger eligible based on patient's age to complete this topic RSV Immunization Patients Un yulissa 20 months Aged Out No longer eligible b ased on patient's age to complete this topic Varicella Vaccines Aged Out No longer eligible based on patient's age to complete this topic Care Teams Derrick Worker Well Service Relationship Specialty Start Date End Date Champ Grady MD [address] [place] [address] Drive [address] [place] [address] PCP - General Internal Medicine 03/20/18
--- OUTSIDE RECORDS SUMMARY | 2024-10-30 10:59 | XMS_ITS | Continuity of Care Document ---
Author Organization [place] - [facility], [facility] Address [address] [place] [address] Care Team Providers Care Bending Machine Set Up Operator Name Role Phone CARMELLA SWEET Primary Care Provider Assessment Encounter Date Assessment Date Assessment LastModified by Organization Details LastModified Time 10/18/2024 10/18/2024 Patient was scheduled today for a first fit with hearing aids. She came to the appointment but she is not feeling well and she didn't realise the appointment was an hour long. We decided to r/s to a day when she's feeling better. Kirti Wilburn MA, CCC-Kayla morgan Not available 10/18/2024 11:21:42 Plan of Treatment Reminders Order Date Submit Date Provider Last Modified By Organization Details Last Modified Time Details Appointments MORGAN Fitting Follow Up (60) 2024 02:00P M KIRTI WILBURN [place], CCC-A Not available Not available Not available Lab None recorded . Referral None recorded . Procedures None recorded . Surgeries None recorded . Imaging None recorded . Medication Orders None recorded . Patient TargetsNo targets recorded. Patient InstructionsNo instructions recorded. Reason for Referral None Reported. Problems Name Problem SNOMED Code Status Onset Date Resolution Date Notes Provider Name and Address Organization Details Recorded Time Sensorineural hearing loss of bilateral ears 128060301 Active 2023 KIRTI WILBURN [place], CCC-A [address] [place] [address], [phone] [facility] [place] [facility] 15:07:37 Habitual snoring 503016571 Active 2023 DUSTIN AGUIRRE PA-C [address] [place] [address] [place], [phone], [facility] - [facility] 15:18:37 Snoring 92644280 Active 2023 DUSTIN AGUIRRE PA-C [address] [facility], [place], [address], [facility] - [facility] 15:18:48 Problem Notes None recorded. Procedures Surgical History Date Name Laterality Status Provider Name and Address Organization Details Recorded Time Comp Audio with Tymps (65596 & 90590) completed KIRTI WILBURN [place], CCC-A [address] [facility] [address], [place], [address], [facility] - [facility] 06/15/2024 15:07:26 8 Spinal disk surgery add-on completed Florinda Mcgee [place] - [facility] 06/15/2024 15:15:57 Imaging Results None recorded. Procedure Notes None recorded. Medical Equipment None Reported. Allergies Allergen ID Allergen Name Allergen Category Reaction Reaction Severity Criticality Documentation Date Start Date Code Code System Note Provider Name and Address Organization Details Recorded Time 304359 Product containin g penicilli n (product) medicatio n rash Not available Not available 06/15/2024 35860 8001 SNOMED Florinda garcia [facility] 15:14:10 Medications Name Sig Start Date Stop Date Status Note LastModified by Organization Details LastModified Time doxycycline hyclate 100 mg capsule TAKE ONE CAPSULE BY MOUTH TWICE DAILY WITH FOOD. REDUCE TO ONCE DAILY ONCE IMPROVED. active Not Available Not Available No t Available atorvastatin 10 mg tablet TAKE 1 TABLET BY MOUTH DAILY active Not Available Not Available Not Available valacyclovir 1 gram tablet TAKE 2 TABLETS BY MOUTH AT ONSET AND 12 HOURS LATER FOR COLD SORE THEN STOP. TAKE 1 PILL DAILY FOR PREVENTION NEEDED active Not Available Not Available No t Available doxycycline hyclate 50 mg capsule TAKE 1 CAPSULE BY MOUTH EVERY DAY. MAY INCREASE TO 2 CAPSULES BY MOUTH EVERY MORNING AND 2 CAPSULES EVERY EVENING FOR FLARE [employer] active Not Available Not Available No t Available bisoprolol fumarate 5 mg tablet TAKE 1 TABLET BY MOUTH DAILY active Not Available Not Available Not Available acyclovir 5 % topical ointment APPLY TOPICALLY TO THE AFFECTED AREA UP TO FIVE TIMES DAILY active Not Available Not Available No t Available methylpredni solone 4 mg tablets in a dose pack TAKE 6 TABLETS BY MOUTH FOR 1 DAY DIRECTED THEN DECREASE BY 1 TABLET BY MOUTH EACH DAY UNTIL ALL TAKEN active Not Available Not Available No t Available Vitals None Recorded Social History None recorded. Functional Status None recorded. Mental Status None recorded. Family History Nothing Reported. Medical History Condition Response Heart Problems Y Headaches Y Migraines Y Gynecological HistoryNo gynecological history recorded. Obstetrics History GPAL:G 0 P 0 0 0 0 Past Encounters Encounter ID Performer Location Encounter Start Date Encounter Closed Date Diagnosis/Indication Diagnosis SNOMED-CT Code Diagnosis ICD10 Code Diagnosis Note [id number] KIRTI WILBURN [place], VICENTA-Kayla MORGAN - [facility] [address] [place] [phone] 10/10/2024 12:58:57 10/11/2024 07:26:05 Sensorineural hearing loss of bilateral ears 845692014 H90.3 [id number] KIRTI WILBURN [place], VICENTA-Kayla [facility] [address] [address] 10/18/2024 11:18:09 10/19/2024 07:43:20 Sensorineural hearing loss of bilateral ears 837299977 H90.3 Health Concerns Section Related Observation LastModified by Organization Detai ls LastModified Time None Recorded Concern Status LastModified by Organization Details LastModified Time None Recorded Payers Encounter Date Sequence Insurance Name Policy Number Policy Davidson Covered Member ID Davidson Member ID Guarantor Name 10/18/2024 1 [employer] - MEDICARE ADVANTAGE PLAN (MEDICARE REPLACEMENT HMO) [id number] Thea Booker [id number] Thea Booker OBGyn Episode No OBEpisode recorded.
--- OUTSIDE RECORDS SUMMARY | 2024-10-30 10:59 | XMS_ITS ---
Author Organization [facility] Address [address] [place] [address] Care Team Providers Care Director Fundraising Name Role Phone Miguel A SOLIMAN, Champ Primary Care Provider Kit Perera Unavailable [phone] REASON FOR VISIT screening, fam hx colon ca PROBLEMS Problem Type ICD Code Onset Dates Problem Status W/U Status Risk SNOMED Code Notes Problem Diverticulosis of large intestine without perforation or abscess without bleeding (K57.30) Active confirmed Diverticul ar disease of colon (996687225) Encounters Encounter Location Date Provider Diagnosis [facility] [address] [place], [place] [id number] 07/11/2023 Kit Portillo Encounter for scre ening colonoscopy Z12.11 ; Colon polyps K63.5 ; Family history of colon cancer Z80.0 ; Diverticulosis of large intestine without perforation or abscess without bleeding K57.30 and Other hemorrhoids K64.8 ASSESSMENTS Encounter Date Diagnosis Assessment Notes Treatment Notes Treatment Clinical Notes 07/11/2023 Encounter for screening colonoscopy (ICD-10 - Z12.11) 07/11/2023 Colon polyps (ICD-10 - K63.5) 07/11/2023 Family history of colon cancer (ICD-10 - Z80.0) 07/11/2023 Diverticulosis of large intestine without perforation or abscess without bleeding (ICD-10 - K57.30) 07/11/2023 Other hemorrhoids (ICD-10 - K64.8) PLAN OF TREATMENT No Information
--- OUTSIDE RECORDS SUMMARY | 2024-10-30 10:59 | XMS_ITS | Data Portability ---
Author Organization [place] [facility] Address [address] [place] [id number] Care Team Providers Care Dental Patient Coordinator Name Role Phone CARMELLA SWEET Primary Care Provider [phone] Assessment Encounter Date Assessment Date Assessment LastModified by Organization Details LastModified Time 06/15/2024 06/15/2024 Patient complains of hearing loss. Otologic exam unrevealing. Audiometric testing obtained today and reviewed with patient demonstrates bilateral neurosensory hearing loss, affecting the frequencies of human speech, with resultant decreased speech discrimination. Reviewed with patient hearing loss is amenable to hearing aids; recommend binaural amplification. Recommend annual audiometric testing, sooner with perceived change in hearing. All questions were answered. Patient reports snoring with paroxysmal nocturnal dyspnea and persistent daytime fatigue. Recommend polysomnogram and patient will be called with results. [email or web address] Not available 06/15/2024 15:34:09 10/10/2024 10/10/2024 Patient here to discuss trying hearing aids. She has been told that her insurance does provide some sort of discount toward the purchase of hearing aids but only if she goes to [facility]. By the end of our visit, she decided not to go to [facility] but to proceed with aids here. She understands that by coming here, her benefit is not available. She understands if she submits payment to insurance, they will not reimburse her. Patient is retired. She lives with her and they have 2 cats and a dog; she understands that the aids and the academy director should be kept out of reach of the animals. She looks forward to traveling and to attending concerts. They eat out about 1 time per week. We discussed our policies. trial period, $200 fee if aids are returned, etc. After discussion she decided to try Phonak Audeo I 90's - not Sphere as the size didn't fit her ear well.Dark brown, Speaker 2, and medium open domes. Patient left deposit of half. R/s PATIENT RECEIVED AN EMAIL AND SHE PAID A $45 COPAYMENT FOR TODAYS NO CHARGE VISIT. KRISHAN IN BILLING PUT THROUGH A REFUND. Kirti Wilburn MA, CCC-A cathy Not available 10/10/2024 16:35:40 10/18/2024 10/18/2024 Patient was scheduled today for [...] available Not available Not available Lab None recorded. Referral None recorded. Procedures polysomno graphy, diagnosti c (PROC) 2023 024 [id number] [facility], [address] [facility] [address], [place], [address], 2024 09:33:42 Surgeries None recorded. Imaging None recorded. Medication Orders None recorded. Patient TargetsNo targets recorded. Patient InstructionsNo instructions recorded. Reason for Referral None Reported. Results Created Date Observation Date Name Description Value Unit Range Abnormal Flag Note LastModifiedBy Organization Detail LastModifiedTime 06/18/20 24 audio gram No observ ation record ed. [facility] Not Available 2023 13:13:43 Result Notes None recorded. Problems Name Problem SNOMED Code Status Onset Date Resolution Date Notes Provider Name and Address Organization Details Recorded Time Sensorineural hearing loss of bilateral ears 466152225 Active 2023 KIRTI WILBURN MA, CCC-A [address] [facility] [address], [place], [address] [place] [address] - [facility] 15:07:37 Habitual snoring 388167994 Active [address],[place] [address], [place], [address], [facility] - [facility] 15:18:37 Snoring 30909625 Active [address],[place] [address], [place], [address], [facility] - [facility] 15:18:48 Problem Notes None recorded. Procedures Surgical History Date Name Laterality Status Provider Name and Address Organization Details Recorded Time Comp Audio with Tymps (34697 & 83530) completed KIRTI WILBURN MA, [facility] [address] [facility],[place] [address], [place], [address], [facility] - [facility] 06/15/2024 15:07:26 8 Spinal disk surgery add-on completed Florinda Mcgee [facility] 06/15/2024 15:15:57 Imaging Results Imaging Date Name Status LastModified by Organiz ation Details LastModified Time 06/18/2024 audiogram completed [facility] Information no t available 06/18/2024 13:13:43 Procedure Notes None recorded. Medical Equipment None Reported. Allergies Allergen ID Allergen Name Allergen Category Reaction Reaction Severity Criticality Documentation Date Start Date Code Code System Note Provider Name and Address Organization Details Recorded Time 160696 Product containin g penicilli n (product) medicatio n rash Not available Not available 06/15/2024 11517 8001 SNOMED Florinda garcia [facility] 15:14:10 Medications Name Sig Start Date [...] SNOMED-CT Code Diagnosis ICD10 Code Diagnosis Note DUSTIN AGUIRRE PA-C [facility] [address] [address] 06/15/2024 13:37:10 06/15/2024 15:30:00 Sensorineural hearing loss of bilateral ears [id number] H90.3 Audiologic al evaluation results: Right ear: {{Normal N ormal through 2 kHz Mild M oderate Mo derately-s evere Marla re Profoun d Normal hearing sloping to a mild#}} {{hearing sloping to a mild slopi ng to a moderate s loping to moderately severe slo ping to severe slo ping to profound f lat high frequency low frequency mid frequency cookie bite cage curve SNHL #}} {{with* se nsorineura l hearing loss with condu ctive hearing loss with mixed hearing loss with}} {{excellen t* good fa ir poor no measurable }} word recognitio n. Left ear: {{Normal N ormal through 2 kHz Mild M oderate Mo derately-s evere Marla re Profoun d Normal hearing sloping to#}} {{hearing sloping to a mild slopi ng to a moderate s loping to moderately severe slo ping to severe slo ping to profound f lat high frequency low frequency mid frequency cookie bite cage curve a mild to moderate SNHL#}} {{with* se nsorineura l hearing loss with condu ctive hearing loss with mixed hearing loss with}} {{excellen t* good fa ir poor no measurable }} word recognitio n. Tympanomet ry: Right Ear:{{Type A* Type As Type Ad Type C Type C, shallow & rounded Ty pe B Type B with large volume Cou ld not maintain a hermetic seal}} Left Ear:{{Type A* Type As Type Ad Type C Type C, shallow & rounded Ty pe B Type B with large volume Cou ld not maintain a hermetic seal}} Snoring [id number] R06.83 [id number] KIRTI WILBURN [place], CCC-A [facility] [address] [place] [address] [address] 10/10/2024 12:58:57 10/11/2024 07:26:05 Sensorineural hearing loss of bilateral ears [id number] H90.3 [id number] KIRTI WILBURN MA, CCC-A [facility] [address] [address] 10/18/2024 11:18:09 10/19/2024 07:43:20 Sensorineural hearing loss of bilateral ears [id number] H90.3 Health Concerns Section Related Observation LastModified by Organization Detai ls LastModified Time None Recorded Concern Status LastModified by Organization Details LastModified Time None Recorded Advance Directives Directive None Recorded Payers Encounter Date Sequence Insurance Name Policy Number Policy Davidson Covered Member ID Davidson Member ID Guarantor Name 06/15/2024 1 [employer] MED[employer]ARE [employer]VANTAGE PLAN (MEDICARE REPLACEMENT HMO) [id number] 12 Thea Booker [id number] Thea Booker 10/10/2024 1 [employer] MED[employer]VANTAGE PLAN (MEDICARE REPLACEMENT HMO) [id number] 12 Thea Booker [id number] Thea Booker 10/18/2024 1 [employer] MED[employer]VANTAGE PLAN (MEDICARE REPLACEMENT HMO) [id number] 12 Thea Booker [id number] Thea Booker Notes Date Note Type Note Provider Name and Address Organization Details Recorded Time 06/15/2024 text/html 68 year old sg leyva presents for evaluation of ears and hearing. Patient feels like she has some hearing loss. Has trouble in lectures or large rooms. No otalgia nor otorrhea. She does endorse intermittent nonpulsatile tinnitus, well tolerated with masking. No significant otologic history and no history of otologic surgeries. Patient reports she has been told she snores. She does sometimes awaken in the night feeling short of breath or gasping. She is often tired throughout the day. DUSTIN AGUIRRE PA-C [address] [facility],[place] [address], [place], [address], [facility] - [facility] 06/15/2024 15:34:35 10/10/2024 text/html Mild SNHL. Never previously aided. At the time of her hearing test in June, she was not ready to try hearing aids. 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 Her mom has since passed and patient recognizes the need to take care of herself. KIRTI WILBURN MA, CCC-A [address] [facility],[place] [address], [place], [address], [facility] 10/10/2024 16:35:58 OBGyn Episode No OBEpisode recorded.
== END 2024-10-30 10:30 | disposition home or self-care (01) ==
PROVIDERS: PCP Internal Medicine; Visit Provider Internal Medicine
DX: E78.5 Hyperlipidemia, unspecified (principal)

== ENCOUNTER → 2024-10-30 10:05 | Outpatient (BNVA) | payer MEDICARE, SELFPAY | PROVIDERS: PCP Internal Medicine; Visit Provider Internal Medicine | DX: E78.5 Hyperlipidemia, unspecified (principal) | CPT/HCPCS: 96127; 99212 ==

== ENCOUNTER 2025-04-29 10:01 | Outpatient (AMB) | payer MEDICARE, SELFPAY ==
[2025-04-29 10:12] VITALS: BP 120/60; PULSE 62; RESP 18; TEMP 36.3; O2SAT 96; BMI 22.7
--- NOTE | 2025-04-29 10:12 | A.OFFPC_ITS ---
Vital Signs 04/29/25 10:12 Height 5 ft 4 in Weight 132 lb 2 oz BMI 22.7 BP 120/60 Blood Pressure Location Lt brachial Position Sitting Respiration 18 Pulse 62 Pulse Source Pulse Oximeter Temp 97.3 F Temp Source Temporal Artery Scan Pulse Oximetry (%) 96 Oxygen Delivery Method Room Air Intake Visit Reasons: SAMMY from Dr. Grady/ f/u - see comments Clod Puller Required: No Accompanied by: Self / Same As Patient Allergies bupropion (From WELLBUTRIN) Allergy (Intermediate, Verified 04/29/25 10:30) RASH Penicillins (PENICILLINS) Allergy (Intermediate, Verified 04/29/25 10:30) RASH lisinopril Adverse Reaction (Intermediate, Verified 04/29/25 10:30) cough Medication List - Last Reconciled 04/29/25 by GALDINO Smith atorvastatin 10 mg PO DAILY bisoprolol fumarate 5 mg PO DAILY calcium carbonate-vitamin D3 600 mg-5 mcg (200 unit) (Calcium 600 + D(3)) 1 tab PO DAILY doxycycline hyclate 20 mg PO BID turmeric 400 mg PO DAILY Tobacco use date assessed: 04/29/25 Fall risk assessment: No Falls in past year Last assessed Fall Risk: 04/29/25 Dental Screening Dental Screen Date: 04/29/25 Did you have a dental visit in the last 12 months?: Yes Did you have a dental problem in the last 6 months where you did not have access to dental care?: No Was dental information given to patient?: Patient has dentist HPI SAMMY from Dr. Grady/ f/u - see comments HPI Details The patient is a 69-year-old female presenting transitioning care from Dr. Grady, who retired about 5 months ago. present with concerns of possible sciatica pain and ongoing management of cardiomyopathy. The patient reports experiencing pain that starts in her buttock and radiates down the right leg, which she suspects might be sciatica. The pain is described as dull and persistent, sometimes exacerbated by sitting, and has been present for a couple of months. She has been performing exercises for sciatica, which seem to provide some relief. The patient has a history of cardiomyopathy diagnosed in 2017, which required an ICU stay for eight days and a total hospital stay of 11 days. She experienced difficulty regulating her heart rhythm and underwent cardioversion. She continues to have follow-ups with her compensation consultant and undergoes echocardiograms to monitor her condition. The patient also has a history of atrial fibrillation, which was one episode while being treated for cardiomyopathy and she was cardioverted, and has been stable since. She reports occasional shortness of breath on exertion, which she attributes to her cardiac history, but has improved compared to what it has been prior. Additionally, the patient has a history of mild mitral valve prolapse, which is being monitored due to a family history of similar cardiac issues. Her sister is undergoing a procedure for mitral valve issues, and her father had a pacemaker, one of her brother's passed for cardiac related issues that was unclear. The patient recalls a past diagnosis of a hiatal hernia, which was confirmed via endoscopy but has not caused significant issues recently. [facility] Medical History (Updated 04/29/25 @ 19:32 by GALDINO Smith) Left ventricular thrombosis following [place] NSTEMI (non-ST elevated myocardial infarction) LBBB (left bundle branch block) Murmur Paroxysmal atrial fibrillation Takotsubo cardiomyopathy Hyperlipidemia Surgical History Hx of cardiac catheterization Hx of cervical discectomy H/O colonoscopy Family History Father Automobile accident Family/Other Hypertension Brother No problems noted. Sister No problems noted. Social History Housing: House Alcohol intake: current Alcohol intake frequency: 0-2 drinks per day Patient Tobacco Use Status: Former Tobacco user Tobacco use type: Cigarette e-Cigarette/Vaping Use: Never Used Second Hand Smoke Exposure: No service: No Current occupational status: retired Cognitive needs: No Hearing needs: No Vision needs: Yes Questionnaire PHQ-9 Over the last 2 weeks, how often have you been bothered by any of the following problems? 1. Little interest or pleasure in doing things: not at all 2. Feeling down, depressed, or hopeless: not at all 3. Trouble falling or staying asleep, or sleeping too much: not at all 4. Feeling tired or having little energy: not at all 5. Poor appetite or overeating: not at all 6. Feeling bad about yourself - or that you are a failure or have let yourself or your family down: not at all 7. Trouble concentrating on things, such as reading the newspaper or watching television: not at all 8. Moving or speaking so slowly that other people could have noticed. Or the opposite - being so fidgety or restless that you have been moving around a lot more than usual: not at all 9. Thoughts that you would be better off or of hurting yourself in some way: not at all Total score: 0 Depression Screening Interpretation: Negative Depression Screening Done: Yes Source: Developed by Drs. Kit Pope, Loly Zepeda, Noé Leyva and colleagues, with an educational mitchell from [employer]. Thrive Questionnaire Date Thrive assessed: 04/29/25 I am a: Patient What is your living situation today?: I have a steady place to live Within the past 12 months, did the food you bought not last and you didn't have the money to get more?: Never true Within the past 12 months, did you worry whether your food would run out before you got money to buy more?: Never true Do you have trouble paying for medicines?: No Do you have trouble getting transportation to medical appointments?: No Do you have trouble paying your heating and electricity bill?: No Do you have trouble taking care of your child, family member or friend?: No Do you have trouble with day-to-day activities such as bathing, preparing meals, shopping, managing finances, etc.?: No Are you currently unemployed and looking for a job?: No Are you interested in more education?: No Please select the resources that you would like help with: None Currently or been in a relationship where the following occur: No concerns reported THRIVE Score: 0 AUDIT C Alcohol Use Questionnaire (AUDIT-C) 1. How often do you have a drink containing alcohol?: Never Total Score: 0 VIRGIE-7 AMB Questionnaire VIRGIE-7 Date VIRGIE - 7 assessed: 04/29/25 Feeling nervous, anxious, or on edge: 0 = Not at all Not being able to stop or control worryin = Not at all Worrying too much about different things: 0 = Not at all Trouble relaxin = Not at all Being so restless that it is hard to sit still: 0 = Not at all Becoming easily annoyed or irritable: 0 = Not at all Feeling afraid as if something awful might happen: 0 = Not at all Total VIRGIE-7 score (0-4 normal; 5-9 mild; 10-14 moderate; 15-21 severe): 0 Source: Developed by Drs. Kit Pope, Loly Zepeda, Noé Leyva and colleagues, with an educational mitchell from [employer]. Review of Systems Const Denies headache(s) Eyes Denies loss of vision ENT Denies vertigo, Denies dizziness, Denies headache(s) and Denies sore throat Card Denies chest pain, Denies leg edema, Denies lightheadedness and Reports dyspnea on exertion Resp Denies cough, Denies hemoptysis, Reports dyspnea on exertion and Denies wheezing GI Denies abdominal pain, Denies melena, Denies constipation, Denies diarrhea and Denies vomiting Denies urinary frequency, Denies dysuria and Denies urinary urgency Musc Denies arthralgias, Denies joint swelling, Denies numbness, Denies tingling and Reports other (Dull Pain from right buttock all the way down to right calf) Skin/Breast Reports rash (in the palm of hands) Neuro Denies Abnormal speech present, Denies behavioral changes, Denies vertigo, Denies dizziness, Denies headache(s), Denies loss of vision, Denies memory loss, Denies numbness and Denies tingling Psych Denies anxiety, Denies behavioral changes, Denies depression, Denies memory loss and Denies panic attacks Fernando/Lymph Denies easy bleeding and Denies easy bruising Aller/Immun Denies wheezing Physical exam (Primary Care) Vital Signs: Last Vital Signs Temp 97.3 F 04/29/25 10:12 Pulse 62 04/29/25 10:12 Resp 18 04/29/25 10:12 BP 120/60 04/29/25 10:12 Pulse Ox 96 04/29/25 10:12 Oxygen Delivery Method Room Air 04/29/25 10:12 BMI result Body Mass Index 22.7 Tobacco/Smoking Status: Tobacco use Status Tobacco use date assessed 04/29/25 04/29/25 10:23 Patient Tobacco Use Status Former Tobacco user 04/29/25 10:12 Tobacco use type Cigarette 04/29/25 10:12 e-Cigarette/Vaping Use Never Used 04/29/25 10:12 PHQ-9: PHQ-9 Score PHQ-9: Total score 0 04/29/25 13:24 Depression Screening Interpretation: Negative Thrive Assessment: Date of Thrive Assessment Date Thrive assessed 04/29/25 04/29/25 10:23 Currently or been in a relationship where the following occur: No concerns reported Const General: healthy appearing, no acute distress, alert and awake Nutritional Appearance: well nourished Orientation/consciousness: oriented to person, oriented to place and oriented to time HENMT Ears: TM's normal bilaterally General nose exam: Normal nasal mucous membranes and turbinates present Eyes Conjunctivae: conjunctivae normal Sclerae: sclerae normal Pupils: Equal, round and reactive pupils present Neck Neck: Yes no lymphadenopathy and Yes no JVD Thyroid: Thyroid normal Carotids: no bruits Resp Effort & Inspection: normal respiratory effort and not tachypneic Auscultation: no crackles, no rales, no rhonchi and no wheezes Cardio Rate: regular rate Rhythm: regular rhythm Heart sounds: Murmur heart sound present systolic soft and II/ and normal S1 and S2 GI Palpation (GI): Soft to palpation, nontender, no hepatomegaly and no splenomegaly Auscultation: normal bowel sounds Skin General skin exam: dry skin Rashes: rashes noted (erythematous widespread patches to the palm of hands) Neuro General: oriented to person, oriented to place and oriented to time Cranial nerves: Yes Equal, round and reactive pupils present Speech: No Abnormal speech present Gait exam (Neuro): Normal gait present Motor exam (neuro): no tremor noted Extrem Right upper extremity: full ROM Left upper extremity: full ROM Right lower extremity: full ROM; no edema Left lower extremity: full ROM; no edema Psych Mental Status: mental status grossly normal Speech and movement: Normal speech and movement present Affect: normal affect Attitude: cooperative Thought process: Normal thought process present Coding Level of Care Code Est Pt Level 4 (30704) Diagnoses Takotsubo cardiomyopathy I51.81 Hyperlipidemia, unspecified hyperlipidemia type E78.5 Hyperlipidemia type: unspecified SOB (shortness of breath) R06.02 Contact dermatitis, unspecified contact dermatitis type, unspecified trigger L25.9 Contact dermatitis trigger: unspecified trigger Contact dermatitis type: unspecified Piriformis syndrome of right side G57.01 Time Spent (min) 39 Assessment & Plan Assessment & Plan (1) Takotsubo cardiomyopathy: Comment: 2017-since resolved per note (follows w/[facility]) Code(s): I51.81 - Takotsubo syndrome Category: Medical Plan: Most recent echocardiogram shows LV systolic function normal. Left ventricular ejection fraction is 55-60%. There is moderate septal angulation (sigmoid septum). The upper septum protrudes into the outflow tract, and there is flow turbulence and flow acceleration but no evidence of left ventricular outflow tract obstruction. Patient denies pain, no increasing shortness of breath. Follow up with Cardiology as scheduled( Dr. Burks at [facility] [place]). (2) Hyperlipidemia: Code(s): E78.5 - Hyperlipidemia, unspecified Category: Medical Qualifiers: Hyperlipidemia type: unspecified Qualified Code(s): E78.5 - Hyperlipidemia, unspecified Plan: LIPID PANEL FROM OF LAST YEAR showed a cholesterol within normal ranges. Continue atorvastatin 10 mg daily. Labs ordered for the patient to complete as soon as possible to re-evaluate this. (3) SOB (shortness of breath): Code(s): R06.02 - Shortness of breath Category: Medical Plan: Ongoing shortness of breath with exertion. Lung sounds clear to auscultation and no swelling in her lower extremities. Encouraged the patient to rest as needs be, but to report any worsening in shortness of breath or swelling in her lower extremities. We will continue to monitor (4) Contact dermatitis: Code(s): L25.9 - Unspecified contact dermatitis, unspecified cause Category: Medical Qualifiers: Contact dermatitis trigger: unspecified trigger Contact dermatitis type: unspecified Qualified Code(s): L25.9 - Unspecified contact dermatitis, unspecified cause Plan: Erythematous, flat patches to palm. Patient already made an appointment with a new car inspector. We will defer to Dermatology. (5) Piriformis syndrome of right side: Code(s): G57.01 - Lesion of sciatic nerve, right lower limb Category: Medical Plan: The patient has started looking up exercises online which has helped some but not relieved the pain down her leg completely. We will refer the patient to physical therapy. Encouraged the patient to use NSAIDs sparingly as needed to assist with the inflammation. Orders: Orders Complete Blood Count Auto Diff Today E78.5 - Hyperlipidemia, unspecified, I51.81 - Takotsubo syndrome, R06.02 - Shortness of breath Comprehensive [place]. Panel Fast Today E78.5 - Hyperlipidemia, unspecified, I51.81 - Takotsubo syndrome, R06.02 - Shortness of breath Lipid Panel Today E78.5 - Hyperlipidemia, unspecified, I51.81 - Takotsubo syndrome, R06.02 - Shortness of breath UA CC w/rflx Micro + Cult Today E78.5 - Hyperlipidemia, unspecified, I51.81 - Takotsubo syndrome, R06.02 - Shortness of breath TSH reflex Free T4 Today E78.5 - Hyperlipidemia, unspecified, I51.81 - Takotsubo syndrome, R06.02 - Shortness of breath B Type Natriuretic Peptide Today R06.02 - Shortness of breath PT Evaluation and Treatment Today G57.01 - Lesion of sciatic nerve, right lower limb Vitamin D 25-OH Total Today E78.5 - Hyperlipidemia, unspecified, I51.81 - Takotsubo syndrome, R06.02 - Shortness of breath
--- OUTSIDE RECORDS SUMMARY | 2025-04-29 10:54 | XMS_ITS | Patient Health Record ---
Author Organization [facility] Address [address] [place] [address] Care Team Providers Care Administrator Pesticide Name Role Phone Miguel A SOLIMAN, Champ Primary Care Provider Luciano Swenson Unavailable [phone] Allergies Allergen (clinical drug ingredient) Drug/Non Drug Allergy documented on EMR Reaction Allergy Type Onset Date Status Penicillin Unknown Drug Allergy Active Reason For Referral No Information Medications Medication SIG (Take, Route, Frequency, Duration) Notes Start Date End Date Status Aleve 220 MG 1 tablet as needed Orally every 12 hrs 07/08/2014 Active Aleve 220 MG 1 tablet as needed Orally every 12 hrs Active Fish Oil Active Calcium Active vitamin Active Glucosamine Chondroitin Adv Active Propranolol HCl Acti ve Spironolactone Activ e Problems Problem Type SNOMED Code ICD Code Onset Dates Problem Status W/U Status Risk Notes Problem Neuralgia - Neuritis (729.2) Active confirmed Problem Pain in limb (59488801) Pain in Limb (729.5) Active confirmed Plan Of Treatment Pending Test Test Name Order Date X ray : Foot, left 2V 07/08/2014 X ray : Foot, right 2V 07/08/2014 Insurance Providers Payer Name Payer Address Payer Phone Subscriber Number Group Number Insured Name Patient Relationship to Insured Coverage Start Date Coverage End Date [facility] [address] [facility] [place] [address] [phone] [id number] Thea Booker Self - patient is the insured Medical (General) History Medical History History ICD Code Chicken pox Measles Mumps
--- OUTSIDE RECORDS SUMMARY | 2025-04-29 10:54 | XMS_ITS | Clinical Summary ---
Author Organization [facility] Address [address] [place] [address] Phone Care Team Providers Care Vehicle Painter Name Role Phone Champ Grady MD Primary Care Provider [phone] Allergies Active Allergy Reactions Criticality Noted Date Comments Penicillins Hives 10/24/2020 Medications calcium carbonate-vitami n D3 500 mg-400 units per tablet Take 1 tablet by mouth daily. Active ascorbic acid, vitamin C, (VITAMIN C) 500 MG tablet Take 500 mg by mouth daily. Active TURMERIC ORAL Take by mouth. A ctive doxycycline monohydrate (ADOXA) 50 MG tablet Take 50 mg by mouth 2 (two) times a day. Active atorvastatin (LIPITOR) 10 MG tablet Take 10 mg by mouth daily. Active spironolactone (ALDACTONE) 25 MG tablet Take 25 mg by mouth daily. Active bisoprolol (ZEBETA) 5 MG tablet Take 5 mg by mouth daily. Active valACYclovir (VALTREX) 500 MG tablet Take 500 mg by mouth 2 (two) times a day. Active clotrimazole (LOTRIMIN) 1 % creamIndications :Candidal skin infection Apply to affected area externally twice daily for 7-14 days 28 g Active Active Problems Problem Noted Date Diagnosed Date Candidal skin infection 10/24/2020 Overview (10/24/2020): 10/2020- candidal intertrigo axilla bilat. Assessment & Plan (10/24/2020 2:58 PM EST): candidal intertrigo axilla bilat. Plan to apply azole anti-fungal bid for 10-14 days. Follow up if no improvement or recurring. If becoming itching may apply small amount 1%hydrocortisone cream twice daily prn. Social History Tobacco Use Types Packs/Day Years Used Date Smoking Tobacco: Former Cigarettes Q uit: 2010 Smokeless Tobacco: Never Alcohol Use Standard Drinks/Week Comments Yes 0 (1 standard drink = 0.6 oz pur e alcohol) Education Answer Date Recorded Are you interested in more education? Not on desirae e 01/07/2023 Are you concerned about learning? Not on file 01/07/2023 No 01/07/2023 No 01/07/2023 Digital Access Answer Date Recorded No 02/05/2023 No 02/05/2023 Reliable internet access at home? Not on file 02/05/2023 Device with a working camera? Not on file Comments No Sex and Gender Information Value Date Recorded Sex Assigned at Not on file Legal Sex Female 3:53 PM EDT Gender Identity Not on file Sexual Orientation Not on file Last Filed Vital Signs Vital Sign Reading Time Taken Comments Blood Pressure 126/74 10/24/2020 11:25 AM EST Pulse - - Temperature - - Respiratory Rate - - Oxygen Saturation - - Inhaled Oxygen Concentration - - Weight 60.1 kg (132 lb 9.6 oz) 10/24/2020 11:25 AM EST Height 161.3 cm (5' 3.5 ) 10/24/2020 11:25 AM ES T Body Mass Index 23.12 10/24/2020 11:25 AM EST Plan of Treatment Health Maintenance Due Date Last Done Comments Adult Td,Tdap Booster 1954 LIPID PANEL 1954 POTASSIUM LEVEL 1954 DEPRESSION SCREENING 1966 SMOKING Hx and SMOKELESS TOBACCO SCREENING 1967 HEPATITIS C SCREENING 1972 COLOGUARD 1999 COLONOSCOPY 1999 COLORECTAL CANCER SCREENING 1999 FIT TEST 1999 FOBT 1999 SIGMOIDOSCOPY 1999 VIRTUAL COLONOSCOPY 1999 PNEUMOCOCCAL VACCINES (50+ years) (1 of 1 - PCV) 2004 ZOSTER VACCINES (1 of 2) 2004 OSTEOPOROSIS SCREENING INITI AL (ONE-TIME) 2019 PAP SMEAR 10/11/2021 10/11/2016 MAMMOGRAM 07/11/2022 07/11/2020 COVID-19 VACCINE (3 - 2023-2 5 season) 2024 12/11/2020, 11/12/2020 RSV VACCINE (1 - 1-dose 75+ series) 2029 HEPATITIS A VACCINES Aged Out No long er eligible based on patient's age to complete this topic HIB VACCINES Aged Out No longer eligi ble based on patient's age to complete this topic MENINGOCOCCAL VACCINES (ACWY) Aged Out No longer eligible based on patient's age to complete this topic MENINGOCOCCAL VACCINES (B) Aged Out N o longer eligible based on patient's age to complete this topic Medical Devices Not on file Procedures Procedure Name Priority Date/Time Associated Diagnosis Comments MAMMOGRAPHY Routine 07/11/2020 PAP SMEAR FOR RESULT ENTRY ONLY Routine 10/11/2016 from Last 3 Months or Most Recently Relevant to Health Maintenance Results * MAMMOGRAPHY FOR RESULT ENTRY ONLY (07/11/2020) Nadia Turk MD HEALTH MAINTENANCE F inal Result * PAP SMEAR FOR RESULT ENTRY ONLY (10/11/2016) Pap smear NIL, HPV Negative Historical Provider HEALTH MAINTENANCE Final Result from Last 3 Months or Most Recently Relevant to Health Maintenance Insurance [employer] H[employer] REPLACEMENT [employer] RE[employer]ACEMENT [employer] HMO REPLACEMENT [address] [address] MEDICARE HMO REPLACEMENT [facility] MEDICARE HMO REPLACEMENT [employer] HMO REPLACEMENT [employer] H[employer] REPLACEMENT Care Teams Vehicle Painter Relationship Specialty Start Date End Date Champ Grady MD [address] [place] [address] Dr Fraire [facility] [place] [address] PCP - General Internal Medicine 06/23/18 Additional Source Comments The information contained in this document represents components of the legal health record. It is not the complete legal health record.[facility]
--- OUTSIDE RECORDS SUMMARY | 2025-04-29 10:54 | XMS_ITS | Clinical Summary ---
Author Organization [facility] it Address [address] [place] [address] Care Team Providers Care Foundry Melt Supervisor Name Role Phone Champ Grady MD Primary Care Provider [phone] Social History Tobacco Use Types Packs/Day Years [...] Vaccine ( - 2023-2 5 season) 2024 Depression Screening 09/12/2024 Influenza Vaccine (#1) 2025 RSV Immunization Adult Patie nts (1 - 1-dose 75+ series) 2029 HIB [...] age to complete this topic Meningococcal B Vaccine Aged Out No l onger eligible based on patient's age to complete this topic RSV Immunization Patients Un yulissa 20 months Aged Out No longer eligible b ased on patient's age to complete this topic Varicella Vaccines Aged Out No longer eligible based on patient's age to complete this topic Care Teams Foundry Melt Supervisor Relationship Specialty Start Date End Date Champ Grady MD [address] [place] [address] Drive [address] [place] [address] PCP - General Internal Medicine 03/20/18
--- OUTSIDE RECORDS SUMMARY | 2025-04-29 10:54 | XMS_ITS | Patient Health Record ---
Author Organization [facility] Address [address] [place] [address] Care Team Providers Care Link Trainer Maintenance Man Name Role Phone Champ Grady MD Primary Care Provider Kit Perera Unavailable [phone] Allergies Allergen (clinical drug ingredient) Drug/Non Drug [...] Once a day for 30 day(s) Active Social History Tobacco Use: Social History Observation Description Date Details (start date - stop date) Former Smoker NA - NA Tobacco Use/Smoking Question Answer Notes Patient is [...] drinks (0 point) Points 4 Interpretation Positive Section Notes: Nonsmoker, wine with dinner Problems Problem Type SNOMED Code ICD Code Onset Dates Problem Status W/U Status Risk Notes Problem [id number] Colon cancer screening (Z12.11) Active confirmed Problem Diverticular disease of colon (513607328) Diverticulosis of large intestine without perforation or abscess without bleeding (K57.30) Active confirmed Problem [id number] Preprocedural examination (Z01.818) Active confirmed Problem 501499943 Family history o f colon cancer (Z80.0) Active confirmed Plan Of Treatment Future Test Test Name Order Date COLONOSCOPY 04/12/2023 Insurance Providers Payer Name Payer Address Payer Phone Subscriber Number Group Number Insured Name Patient Relationship to Insured Coverage Start Date Coverage End Date [facility] [address] [place] [phone] [id number] DEVONTE MARTI Self - patient is the insured Medical (General) History Medical History History ICD Code 2017 Takotsubo syndrome cardiomyopathy-- -resolved-F/U Echos have been normal Denies [place],DM,CVA,Lung disease,renal dise ase Negative colonoscopy in [address] Inessa avendañois Acne rosacea Surgical History Surgery Date(Month/Year) Neck surgery disc C6/C7 04/12/2018
== END 2025-04-29 11:02 | disposition home or self-care (01) ==
LOC: HO.HMCH 10:02
DX: I51.81 Takotsubo syndrome (principal); E78.5 Hyperlipidemia, unspecified; R06.02 Shortness of breath; L25.9 Unspecified contact dermatitis, unspecified cause; G57.01 Lesion of sciatic nerve, right lower limb

== ENCOUNTER → 2025-04-29 10:01 | Outpatient (BNVA) | payer MEDICARE, SELFPAY | PROVIDERS: PCP Internal Medicine | DX: I51.81 Takotsubo syndrome (principal); I42.9 Cardiomyopathy, unspecified; E78.5 Hyperlipidemia, unspecified; I48.91 Unspecified atrial fibrillation; R06.02 Shortness of breath; L25.9 Unspecified contact dermatitis, unspecified cause; G57.01 Lesion of sciatic nerve, right lower limb | CPT/HCPCS: 96127; 99212 ==

== ENCOUNTER 2025-08-05 09:43 | Outpatient (REF) | payer MEDICARE, SELFPAY ==
--- OUTSIDE RECORDS SUMMARY | 2025-08-05 11:22 | XMS_ITS | Patient Health Record ---
[facility] Address [address] [place] [address] Care Team Providers Care Dock Worker Name Role Phone Miguel A SOLIMAN, Champ Primary Care Provider Luciano Louis Unavailable [phone] Allergies Allergen (clinical drug ingredient) Drug/Non Drug [...] (729.2) Active confirmed Problem Pain in limb (09025955) Pain in Limb (729.5) Active confirmed Plan Of Treatment Pending Test Test Name Order Date X ray : Foot, left 2V 07/08/2014 X ray : Foot, right 2V 07/08/2014 Insurance Providers Payer Name Payer Address Payer Phone Subscriber Number Group Number Insured Name Patient Relationship to Insured Coverage Start Date Coverage End Date [facility] [address] [place] [address] [id number] Thea Booker Self - patient is the insured Medical (General) History Medical History History ICD Code Chicken pox Measles Mumps
--- OUTSIDE RECORDS SUMMARY | 2025-08-05 11:22 | XMS_ITS | Patient Health Record ---
Author Organization [facility] Address [address] [place] [address] Care Team Providers Care Rv Body Mechanic Name Role Phone Champ Grady MD Primary Care Provider Kit Perera Unavailable [phone] Allergies Allergen (clinical drug ingredient) Drug/Non Drug Allergy documented on EMR Reaction Allergy Type Onset Date Status Penicillin Unknown Drug Allergy Active Reason For Referral No Information Medications Medication SIG (Take, Route, Frequency, Duration) Notes Start Date End Date Status Bisoprolol Fumarate 5 MG Tablet TAKE 1 TABLET BY MOUTH EVERY DAY Oral; Duration: 90 Active Atorvastatin Calcium 10 MG Tablet TAKE 1 TABLET BY MOUTH DAILY Oral; Duration: 90 Active Doxycycline Hyclate 50 MG Capsule Oral; Duration: 30 Active Valtrex Active Calcium 600 + D 600-5 MG-MCG Tablet 1 tablet with a meal Orally Once a day; Duration: 30 day(s) Active Social History Tobacco Use: Social History Observation Description Date Details (start date - stop date) Former Smoker NA - NA Social History Drugs/Alcohol: Social Info Question Answer Notes Alcohol Screen Did you have a drink containing alcohol in the past year? Yes How often did you have a drink containing alcohol in the past year? 4 or more times a week (4 points) How many drinks did you have on a typical day when you were drinking in the past year? 1 or 2 drinks (0 point) Points 4 Interpretation Positive Tobacco Use: Social Info Question Answer Notes Tobacco Use/Smoking Patient is a former smoker How long has it been since you last smoked? > 10 years Additional Details Category Social Info Options Details Miscellaneous: Marital status: Occupation: retired Section Notes: Nonsmoker, wine with dinner Problems Problem Type SNOMED Code ICD Code Onset Dates Problem Status W/U Status Risk Notes Problem Colon cancer screening (600578201) Colon cancer screening (Z12.11) Active confirmed Problem Diverticular disease of colon (624320503) Diverticulosis of large intestine without perforation or abscess without bleeding (K57.30) Active confirmed Problem Preprocedural examination (428651069921721) Preprocedural examination (Z01.818) Active confirmed Problem Family History of Cancer of Colon (Situation) (956773937) Family history of colon cancer (Z80.0) Active confirmed Plan Of Treatment Future Test Test Name Order Date COLONOSCOPY 04/12/2023 Insurance Providers Payer Name Payer Address Payer Phone Subscriber Number Group Number Insured Name Patient Relationship to Insured Coverage Start Date Coverage End Date [facility] [address] [place] [address] [id number] DEVONTE MARTI Self - patient is the insured Medical (General) History Medical History History ICD Code 2017 Takotsubo syndrome cardiomyopathy-- -resolved-F/U Echos have been normal Denies [place],DM,CVA,Lung disease,renal dise ase Negative colonoscopy in [address] Inessa luis Acne rosacea Surgical History Surgery Date(Month/Year) Neck surgery disc C6/C7 04/12/2018
--- OUTSIDE RECORDS SUMMARY | 2025-08-05 11:22 | XMS_ITS | Clinical Summary ---
Author Organization [facility] it Address [address] [place] [address] Care Team Providers Care Corporate Legal Manager Name Role Phone Champ Grady MD Primary Care Provider Social History Tobacco Use Types Packs/Day Years [...] 2004 Zoster Vaccines (1 of 2) 2004 Depression Screening 09/12/2024 COVID-19 Vaccine (1 - 2024-2 6 season) 2025 Influenza Vaccine (#1) 2025 RSV Immunization Adult [...] age to complete this topic Care Teams Corporate Legal Manager Relationship Specialty Start Date End Date Champ Grady MD [address] [place] [address] Drive [address] [place] [address] PCP - General Internal Medicine 03/20/18
--- OUTSIDE RECORDS SUMMARY | 2025-08-05 11:22 | XMS_ITS | Clinical Summary ---
Author Organization [facility] Address [address] [place] [address] Phone Care Team Providers Care Dermatologist Managing Partner Name Role Phone Champ Grady MD Primary Care Provider [phone] Allergies Active Allergy Reactions Criticality Noted Date [...] VACCINES (1 of 2) 2004 OSTEOPOROSIS SCREENING INITIAL (ONE-TIME) 2019 PAP SMEAR 10/11/2021 10/11/2016 MAMMOGRAM 07/11/2022 07/11/2020 INFLUENZA VACCINE (#1) 2025 0, 07/02/2019, 07/26/2018, Additional history exists COVID-19 VACCINE ( season) 2025 12/11/2020, 11/12/2020 RSV VACCINE (1 - 1-dose [...] [place] [employer] [place]PLACEMENT Care Teams Dermatologist Managing Partner Relationship Specialty Start Date End Date Champ Grady MD [address] [place] [address] [place] [address] PCP - General Internal Medicine 06/23/18 Additional Source Comments The information contained in this document represents components of the legal health record. It is not the complete legal health record.[facility]
[2025-08-05 13:11] LABS: MANUAL DIFF FLAG NO
[2025-08-05 13:17] LABS: Hematocrit 43.1 % (37.0-47.0); Hemoglobin 14.2 g/dl (12.0-16.0); Imm Gran Abs Auto 0.03 X10*3/uL (0.00-0.03); Imm Gran Pct Auto 0.3 % (0.0-0.4); Lymphocytes Absolute Auto 1.8 X10*3/uL (1.2-4.9); Mean Corpuscular HGB Conc 32.9 g/dl (31.0-35.0); Mean Corpuscular Hemoglobin 32.2 pg (27.0-33.0); Mean Corpuscular Volume 97.7 fL (80.0-98.0); NRBC Abs Auto 0.000 X10*3/uL (0.0-0.012); NRBC Pct Auto 0.0 /100WBC (0.0-0.2); Platelet Count 173 X10*3/uL (160-400); Red Blood Count 4.41 X10*6/uL (4.20-5.50); White Blood Count 9.3 X10*3/uL (4.8-10.8)
[2025-08-05 13:19] LABS: Appearance Urine Cloudy; Glucose Urine UA Negative (Negative); PH 5.0 (5.0-9.0); Specific Gravity - Urine 1.020 (1.005-1.025); UMIC TRIGGER UACC YES
[2025-08-05 16:52] LABS: Anion Gap 12 (12-20)
[2025-08-05 16:57] LABS: Alanine Aminotransferase 15 U/L (0-31); Albumin Level 4.7 g/dL (3.5-5.0); Alkaline Phosphatase 68 U/L (39-117); Aspartate Amino Transferase 24 U/L (5-31); Blood Urea Nitrogen 13 mg/dL (9-16); Calcium 9.7 mg/dL (8.4-10.2); Carbon Dioxide 28 mmol/L (22-29); Chloride 106 mmol/L (96-108); Cholesterol 184 mg/dL (<200); Estimated Glomerular Filt Rate > 60; HDL Cholesterol 108 mg/dL (>40); Potassium 4.3 mmol/L (3.3-5.1); Sodium 142 mmol/L (135-145); Total Protein 7.1 g/dL (6.5-8.0); Triglycerides 51 mg/dL (<150)
== END 2025-08-05 09:44 | disposition home or self-care (01) ==
LOC: HO.HMGCLDS 09:43
DX: E78.5 Hyperlipidemia, unspecified (principal); I51.81 Takotsubo syndrome; R06.02 Shortness of breath; Z13.21 Encounter for screening for nutritional disorder
CPT/HCPCS: 36415; 80053; 80061; 81001; 82306; 84443; 85025

== ENCOUNTER 2025-09-11 10:43 | Outpatient (REF) | payer MEDICARE, SELFPAY ==
--- OUTSIDE RECORDS SUMMARY | 2025-09-11 12:04 | XMS_ITS | Patient Health Record ---
[facility] Address [address] [facility] [address] Care Team Providers Care Manager Monitoring Name Role Phone Miguel A SOLIMAN, Champ Primary Care Provider Luciano Louis Unavailable [phone] Allergies Allergen (clinical drug ingredient) Drug/Non Drug [...] (729.2) Active confirmed Problem Pain in limb (78413780) Pain in Limb (729.5) Active confirmed Plan Of Treatment Pending Test Test Name Order Date X ray : Foot, left 2V 07/08/2014 X ray : Foot, right 2V 07/08/2014 Insurance Providers Payer Name Payer Address Payer Phone Subscriber Number Group Number Insured Name Patient Relationship to Insured Coverage Start Date Coverage End Date [facility] [address] [facility] [place] [id number] Thea Booker Self - patient is the insured Medical (General) History Medical History History ICD Code Chicken pox Measles Mumps
--- OUTSIDE RECORDS SUMMARY | 2025-09-11 12:04 | XMS_ITS | Clinical Summary ---
Author Organization [facility] it Address [address] [place] [address] Care Team Providers Care Operations Management Trainee Name Role Phone Champ Grady MD Primary Care Provider [phone] Social History Tobacco Use Types Packs/Day Years [...] age to complete this topic Care Teams Operations Management Trainee Relationship Specialty Start Date End Date Champ Grady MD [address] [place] [address] Drive [address] [place] [address] PCP - General Internal Medicine 03/20/18
--- OUTSIDE RECORDS SUMMARY | 2025-09-11 12:04 | XMS_ITS | Data Portability ---
Author Organization [place] [facility] Address [address] [place] [address] Care Team Providers Care Precinct Captain Name Role Phone DWIGHTCARMELLA NAJERA Primary Care Provider [phone] Assessment Encounter Date Assessment Date Assessment LastModified by Organization Details LastModified Time 10/18/2024 10/18/2024 Patient was scheduled today for a first fit with hearing aids. She came to the appointment but she is not feeling well and she didn't realise the appointment was an hour long. We decided to r/s to a day when she's feeling better. Kirti Wilburn MA CCC-A [email or web address] Not available 10/18/2024 11:21:42 11/07/2024 11/07/2024 Hearing Aid Fitting Details Date: 11-07-24 Investor Relations Manager & Model: Phonak Audeo I 90- R Color: [place] Ear couplin M 2 R&L Serial Numbers Right: [id number] Left: [id number] Warranty Expiration: 11-09-2027 Accessories: Ceru stop Programs: [email or web address] Not available 11/07/2024 17:09:17 11/21/2024 11/21/2024 11-21-2024 2 week check. She is wearing the aids about 13 hours per day but doesn't find much difference. Increased her to 95% and will move to 100% over a months time or so. Instructed on cleaning and on changing domes and wax guards. (cerustops; med. open domes). Instructed on the use of the VC. Ran thru Ultav[employer] x2 as she got in the shower with them; they sound fine. Did down load the Rigoberto and she will play around with it for a bit. Has no difficulty hearing on phone so did not connect them to her phone. Kirti Apolloneelajoan HART CCC-A [email or web address] Not available 11/21/2024 13:55:56 12/05/2024 12/05/2024 12/05/2024 Patient continues to do well BUT, has recently lost the aids. One fell out when she fell asleep on the couch and the other she left one the bathroom counter. Discussed the importance of always placing them in the photographer still when she removes them. We reviewed how to clean and change the domes and wax guards. She has the date of the warranty expiration and understands that we want to send them to [employer] prior to the expiration. They will clean, check and change the lithium ion batteries. Paired to Rigoberto She will return PRN Kirti Pallavi HART CCC-A Hearing Aid Fitting Details Date: Investor Relations Manager & Model:[employer] Audeo I90-R's Color: chestnut Ear coupling: m 6.0 2 R & L Serial Numbers Right: [id number] Left: [id number] Warranty Expiration: 11-09-2027 Accessories: Programs: [email or web address] Not available 12/05/2024 14:48:43 03/18/2025 03/18/2025 69-year-old female presents today for evaluation of ear blockage after a flight. She did have a URI around that time. In the past 4 days her symptoms are better. There is no infection or effusion on exam today. Reassurance was given. Given the seem to be associated with a URI, I do not expect this will be an issue for her in the future, but we did discuss use of decongestants if needed. She was previously seen in August. She is using hearing aids. She was recommended to have updated testing a year from that visit so I would schedule this. [email or web address] Not available 03/24/2025 10:21:45 Plan of Treatment Reminders Order Date Submit Date Provider Last Modified By Organization Details Last Modified Time Details Appointments Hearing Test 2025 09:30A M Hearing Test Not available Not available Not available Establish ed 15 2025 10:00A M SHAYNA LEDEZMA MD Not available Not available Not available Lab None recorded. Referral None recorded. Procedures None recorded. Surgeries None recorded. Imaging None recorded. Medication Orders None recorded. Patient TargetsNo targets recorded. Patient InstructionsNo instructions recorded. Reason for Referral None Reported. Results Created Date Observation Date Name Description Value Unit Range Abnormal Flag Note LastModifiedBy Organization Detail LastModifiedTime 09/06/20 25 10/28/2024 polys omn[facility] mart No observ ation record ed. BARCODE Not Available 2024 18:35:55 Result Notes None recorded. Problems Name Problem SNOMED Code Status Onset Date Resolution Date Notes Provider Name and Address Organization Details Recorded Time Sensorineur al hearing loss of bilateral ears 271287133 Active 2023 KIRTI WILBURN [place], [facility] [address] [place] [address], [place], [address], [facility] - [facility] 4 15:07:37 Habitual snoring 349862456 Active 2023 Leydi garcia [place] - [facility] 4 15:18:37 Snoring 23042303 Active 2023 Leydi garcia [place] - [facility] 4 15:18:48 Obstructive sleep apnea syndrome 27786432 Active 2024 Leydi garcia [place] - [facility] 5 16:36:44 Dysfunction of bilateral eustachian tubes 3156008455024 100 Active 2024 SHAYNA LEDEZMA MD [address] [address], [place], [address], [facility] - [facility] 5 10:20:30 Problem Notes None recorded. Procedures Surgical History Date Name Laterality Status Provider Name and Address Organization Details Recorded Time 06/15/2024 Comp Audio with Tymps - 25835 & 45430 completed KIRTI WILBURN [place], CCC-A [address] [facility] [address], [place], [address], [facility] - [facility] 06/15/2024 15:07:04/12/2018 Lamot dcmprn nrv rt ea addl completed Florinda Mcgee [facility] 06/15/2024 15:15:57 Imaging Results None recorded. Procedure Notes None recorded. Medical Equipment None Reported. Allergies Allergen ID Allergen Name Allergen Category Reaction Reaction Severity Criticality Documentation Date Start Date Code Code System Note Provider Name and Address Organization Details Recorded Time 414996 Product containin g penicilli n (product) medicatio n rash Not available Not available 06/15/2024 68885 8001 SNOMED Florinda garcia [place] - [facility] 4 15:14:10 553220 Wellbutri n medicatio n Not available Not available Not available 09/06/20252019 58588 RxNorm Not Available [employer] 5 16:30:02 207959 bupropion Not available Not available Not available Not available 09/06/2025 62095 RxNorm Not Available [employer] 5 16:30:09 Medications Name Sig Start Date Stop Date Status Note LastModified by Organization Details LastModified Time doxycycline hyclate 100 mg capsule TAKE ONE CAPSULE BY MOUTH TWICE DAILY WITH FOOD. REDUCE TO ONCE DAILY ONCE IMPROVED. 03/18 completed Not Available Not Available Not Available atorvastati n 10 mg tablet TAKE 1 TABLET BY MOUTH DAILY active Not Available Not Available No t Available valacyclovi r 1 gram tablet TAKE 2 TABLETS BY MOUTH AT ONSET AND 12 HOURS LATER FOR COLD SORE THEN STOP. TAKE 1 PILL DAILY FOR PREVENTIO N NEEDED active Not Available Not Available No t Available doxycycline hyclate 50 mg capsule active Not Available Not Available N ot Available clobetasol 0.05 % topical cream APPLY TO AFFECTED AREAS TWICE DAILY FOR 2 WEEKS. THEN NEEDED. active Not Available Not Available No t Available bisoprolol fumarate 5 mg tablet TAKE 1 TABLET BY MOUTH EVERY DAY active Not Available Not Available No t Available doxycycline monohydrate 50 mg capsule active Not Available Not Available Not Available acyclovir 5 % topical ointment APPLY TOPICALLY TO THE AFFECTED AREA UP TO FIVE TIMES DAILY active Not Available Not Available No t Available methylpredn isolone 4 mg tablets in a dose pack TAKE 6 TABLETS BY MOUTH FOR 1 DAY DIRECTED THEN DECREASE BY 1 TABLET BY MOUTH EACH DAY UNTIL ALL TAKEN 03/18 completed Not Available Not Available Not Available Vitals Date Recorded Body height Body mass index (BMI) Body weight Provider Name and Address Organization Details Last Updated DateTime 03/18/2025 162.56 cm 22.3 kg/m2 54411.01 g Trinidad Garrettmichael [place] - [facility] 03/18/2025 09:40:42 Social History Question Answer Notes LastModified by Organizat ion Details LastModified Time Tobacco Smoking Status Former Smoker SHAYNA LEDEZMA MD [address] [place] [address], [address], [place] - [facility] 03/24/2025 10:19:07 What 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 None Information not available 03/24/2025 Do You Have Any Pets? Yes Information not available 03/24/2025 At What Age Did You Start Smoking Tobacco? 16 Information not available 03/24/2025 Are You Passively Exposed To Smoke? No Information not available 03/24/2025 Are There Any Smokers In Your House? No Information not available 03/24/2025 How Many Years Have You Smoked Tobacco? 20 Information not available 03/24/2025 Sex: Unknown Functional Status Question Answer Note LastModified by Organizat ion Details LastModified Time Do you use any illicit or recreational drugs? No Information not available 03/24/2025 Do you or have you ever used any other forms of tobacco or nicotine? No Information not available 03/24/2025 Mental Status None recorded. Family History Nothing Reported. Medical History Condition Response Allergies/Hayfever N Heart Problems Y Anxiety N Tonsil Infections N Emphysema N Migraines Y Thyroid Problems N Glaucoma N Depression N COPD N Developmental Delay N Nasal or Sinus Problems N Anemia N Immune System Disorder N Anesthesia Complications N Heart Attack (AR) N Other Skin Condition Y Diabetes N Rhinitis N Bleeding Disorder N Food Allergy N Arthritis N Hearing Loss Y Hyperlipidemia N Cancer N Stroke N Dementia N Nasal polyps N Asthma N Sleep Disorder Y GERD/Reflux N High Cholesterol N Liver Disease N Headaches Y Fibromyalgia N Hypertension N Speech Delay N Kidney Disease N Gynecological HistoryNo gynecological history recorded. Obstetrics History GPAL:G 0 P 0 0 0 0 Past Encounters Encounter ID Performer Location Encounter Start Date Encounter Closed Date Diagnosis/Indication Diagnosis SNOMED-CT Code Diagnosis ICD10 Code Diagnosis IMO Codes Diagnosis Note LEYDI AGUIRRE PA-C [facility] [address] [address] 06/15/2024 13:37:10 06/15/2024 15:30:00 Sensorineural hearing loss of bilateral ears 211454968 H90.3 Audiologic al evaluation results: Right ear: Normal hearing sloping to a mild SNHL with excellent word recognitio n. Left ear: Normal hearing sloping to a mild to moderate SNHL with excellent word recognitio n. Tympanomet ry: Right Ear:Type A Left Ear:Type A Snoring 84119128 R06.83 [id number] KIRTI WILBURN [place], [facility] [place] [address] [place] [phone] 10/10/2024 12:58:57 10/11/2024 07:26:05 Sensorineural hearing loss of bilateral ears 601828838 H90.3 [id number] KIRTI WILBURN [place], [facility] [address] [address] 10/18/2024 11:18:09 10/19/2024 07:43:20 Sensorineural hearing loss of bilateral ears 973206008 H90.3 [id number] KIRTI WILBURN [place], [facility] [place] [address] [place] [address] 11/07/2024 13:56:08 11/08/2024 07:36:39 Sensorineural hearing loss of bilateral ears 889974484 H90.3 First fit with hearing aids. Patient did very well. Conducted verifit, then adjusted for patient comfort.Ne xt visit will discuss cleaning and pairing to phone/ Rigoberto if she wants.Paid in full Kirti Wilburn [place], CCC-A [id number] KIRTI WILBURN [place], [facility] [place] [address] [address] 11/21/2024 12:59:54 11/21/2024 23:44:21 Sensorineural hearing loss of bilateral ears 244256706 H90.3 First fit with hearing aids. Patient did very well. Conducted verifit, then adjusted for patient comfort.Ne xt visit will discuss cleaning and pairing to phone/ Rigoberto if she wants.Paid in full Kirti MENDES [id number] KIRIT WILBURN [place], CINTHYA [facility] [place] [address] [place] [phone] 12/05/2024 13:56:44 12/10/2024 14:52:18 Sensorineural hearing loss of bilateral ears 307185838 H90.3 First fit with hearing aids. Patient did very well. Conducted verifit, then adjusted for patient comfort.Ne xt visit will discuss cleaning and pairing to phone/ Rigoberto if she wants.Paid in full Kirti MENDES [id number] SHAYNA LEDEZMA MD [facility] [address] [address] 03/18/2025 09:31:09 03/18/2025 10:04:09 Sensorineural hearing loss of bilateral ears 511293018 H90.3 Dysfunctio n of bilateral eustachian tubes 1721006419 968157 H69.93 [id number] Health Concerns Section Related Observation LastModified by Organization Detai ls LastModified Time None Recorded Concern Status LastModified by Organization Details LastModified Time None Recorded Advance Directives Directive None Recorded Payers Insurance Date Sequence Insurance Name Policy Number Policy Davidson Covered Member ID Davidson Member ID Guarantor Name 03/11/2025 1 [employer] MED[employer]ARE ADVANTAGE PLAN (MEDICARE REPLACEMENT HMO) [id number] Thea Booker [id number] Thea Booker 03/25/2025 1 [employer] - MEDICARE ADVANTAGE PLAN (MEDICARE REPLACEMENT HMO) [id number] Thea Booker [id number] Thea Booker Notes Date Note Type Note Provider Name and Address Organization Details Recorded Time 11/21/2024 text/html new hearing aid user KIRTI WILBURN [place], CCC-A [address] [facility],[address] [address], [place], [address], [facility] - [facility] 11/21/2024 13:56:17 03/18/2025 text/html 69-year-old female with a history of sleep apnea presents today for evaluation of her earson trip second leg descending4 weeks blockeddizzy all day for a dayin the past 4 days symptoms are betterno previous issues flying on CPAP, trying to get used to it SHAYNA LEDEZMA MD [address] [facility],[address] [place] [address], [place], [address], [facility] - [facility] 03/24/2025 10:21:55 OBGyn Episode No OBEpisode recorded.
--- OUTSIDE RECORDS SUMMARY | 2025-09-11 12:04 | XMS_ITS | Patient Health Record ---
Author Organization [facility] Address [address] [place] [address] Care Team Providers Care Associate Store Manager Name Role Phone RADHA RODRIGUEZ Primary Care Provider BETY Loya Unavailable [phone] Allergies Allergen (clinical drug ingredient) Drug/Non Drug Allergy documented on EMR Reaction Allergy Type Onset Date Status Penicillin rash Drug Allergy Active Reason For Referral No Information Medications Medication SIG (Take, Route, Frequency, Duration) Notes Start Date End Date Status Collagen Active Turmeric Active CoQ-10 Active Bisoprolol Fumarate 5 MG Oral; Duration: 90 Days Active Doxycycline Monohydrate 50 MG TAKE 1 CAPSULE BY MOUTH TWICE DAILY. REDUCE TO 1 CAPSULE DAILY IF WELL CONTROLLED Oral; Duration: 90 Days Active Calcium + D3 Active Atorvastatin Calcium 10 MG TAKE 1 TABLET BY MOUTH DAILY Oral; Duration: 90 Days Active Social History Tobacco Use: Social History Observation Description Date Details (start date - stop date) Former Smoker NA - NA AUDIT-C (Standard) Question Answer Notes Did you have a drink contain ing alcohol in the past year? Yes How often did you have a dri nk containing alcohol in the past year? Daily or almost daily (4 points) How many drinks did you have on a typical day when you were drinking in the past year? 3 or 4 drinks (1 point) How often did you have six o r more drinks on one occasion in the past year? Never (0 point) Points 5 Interpretation Positive Tobacco Control (Standard) Question Answer Notes Tobacco use: Former smoker How long has it been since you last smoked? 5-10 years Problems Problem Type SNOMED Code ICD Code Onset Dates Problem Status W/U Status Risk Notes Problem Hyperlipidemia (62305996) Hyperlipidemia, unspecified (E78.5) Active confirmed Problem Takotsubo syndrome (814017804) Takotsubo syndrome (I51.81) Active confirmed Problem Rosacea (792447615) Rosacea, unspecified (L71.9) Active confirmed Vital Signs Temperature 98.0 degrees Fahrenheit 08/12/2025 Blood pressure diastolic 70 mm Hg 08/12/2025 Height 63 in 08/12/2025 Blood pressure systolic 148 mm Hg 08/12/2025 Weight 133 lbs 08/12/2025 BMI 23.56 kg/m2 08/12/2025 Encounters Encounter Location Date Provider Diagnosis [facility] [address] [place] [address] 08/12/2025 BETY DILLON Encounter for gynecological examination (general) (routine) without abnormal findings Z01.419 ; Encounter for screening mammogram for malignant neoplasm of breast Z12.31 and Suprapubic pain R10.24 [facility] [address] [place] [address] 09/02/2025 BETY DILLON Assessments Encounter Date Diagnosis (ICD Code) Assessment Notes Treatment Notes Treatment Clinical Notes Section Notes 08/12/2025 Encounter for gynecological examination (general) (routine) without abnormal findings (ICD-10 - Z01.419) During the visit, the following areas of concern were addressed: Discussed stopping cervical cancer screening as per ASCCP guidelines. Advised continued annual pelvic exams. Patient encouraged to increase her level of exercise. SBE technique encouraged/tau ght. Patient reminded when annual mammogram is due. Patient encouraged to keep colon screening up to date. 08/12/2025 Encounter for screening mammogram for malignant neoplasm of breast (ICD-10 - Z12.31) 08/12/2025 Suprapubic pain (ICD-10 - R10.24) No urinary symptoms, and ultrasound offered. Declined today, but will call if opts for ultrasound. Plan Of Treatment Pending Test Test Name Order Date MM Digital Screening Mammogram 3D 2024 Insurance Providers Payer Name Payer Address Payer Phone Subscriber Number Group Number Insured Name Patient Relationship to Insured Coverage Start Date Coverage End Date [employer] [facility] [address] [place] [address] [id number] DEVONTE MARTI Self - patient is the insured 12/06/202 4 Medical (General) History Medical History History ICD Code Hyperlipidemia, unspecified E78.5 Takotsubo syndrome I51.81 Rosacea, unspecified L71.9 Surgical History Surgery Date(Month/Year) CERVICAL NECK Hospitalization History Reason Date(Month/Year) TAKOTSUBO SYNDROME 8 DAY STAY ICU 7
--- OUTSIDE RECORDS SUMMARY | 2025-09-11 12:04 | XMS_ITS | Patient Health Record ---
Author Organization [facility] Address [address] [place] [address] Care Team Providers Care Canine Service Teacher Name Role Phone Champ Grady MD Primary Care Provider Kit Perera Unavailable [phone] Allergies Allergen (clinical drug ingredient) Drug/Non Drug [...] Status Risk Notes Problem Colon cancer screening (895585754) Colon cancer screening (Z12.11) Active confirmed Problem Diverticular disease of colon (993692916) Diverticulosis of large intestine without perforation or abscess without bleeding (K57.30) Active confirmed Problem Preprocedural examination (488501240376282) Preprocedural examination (Z01.818) Active confirmed Problem Family History of Cancer of Colon (Situation) (584665793) Family history of colon cancer (Z80.0) Active confirmed Plan Of Treatment Future Test Test Name Order Date COLONOSCOPY 04/12/2023 Insurance Providers Payer Name Payer Address Payer Phone Subscriber Number Group Number Insured Name Patient Relationship to Insured Coverage Start Date Coverage End Date [facility] [address] [place] [address] [phone] [id number] DEVONTE MARTI Self - patient is the insured Medical (General) History Medical History History ICD Code 2017 Takotsubo syndrome cardiomyopathy-- -resolved-F/U Echos have been normal Denies VA,DM,CVA,Lung disease,renal dise ase Negative colonoscopy in [address] Inessa luis Acne rosacea Surgical History Surgery Date(Month/Year) Neck surgery disc C6/C7 04/12/2018
--- OUTSIDE RECORDS SUMMARY | 2025-09-11 12:04 | XMS_ITS | Clinical Summary ---
Author Organization [facility] Address [address] [place] [phone] Phone Care Team Providers Care Handbag Stitcher Name Role Phone Champ Grady MD Primary Care Provider [phone] Allergies Active Allergy Reactions Criticality Noted Date [...] [employer] [place] [employer] Care Teams Handbag Stitcher Relationship Specialty Start Date End Date Champ Grady MD [address] [place] [address] [place] [address] PCP - General Internal Medicine 06/23/18 Additional Source Comments The information contained in this document represents components of the legal health record. It is not the complete legal health record.[facility]
[2025-09-11 14:09] LABS: Appearance Urine Clear; Glucose Urine UA Negative (Negative); PH 5.5 (5.0-9.0); Specific Gravity - Urine 1.020 (1.005-1.025); UMIC TRIGGER UACC YES
== END 2025-09-11 10:44 | disposition home or self-care (01) ==
LOC: HO.HMGCLDS 10:43
DX: I51.81 Takotsubo syndrome (principal); R06.02 Shortness of breath; E78.5 Hyperlipidemia, unspecified
CPT/HCPCS: 81001; 81003; 88112